=== PATIENT | female | born 1995 | race Caucasian/White ===

== ENCOUNTER 2016-03-09 19:27 | Outpatient (CLI) | payer SELFPAY ==
[2016-03-09 20:32] LABS: Basophils % (A) 0 %; CH 28.1; CHCM 32.8; Eosinophils # (A) 0.1 k/uL (0-0.7); Eosinophils % (A) 1 %; HCT 37.3 % (34.0-46.0); HDW 3.14; HGB 11.9 gm/dL (11.4-16.0); Hypochromasia Slight; Luc # (Auto) 0.14; Luc % (Auto) 1; Lymphocytes # (A) 2.9 k/uL (1.0-4.8); Lymphocytes % (A) 22 %; MCH 27.5 pg (25.0-35.0); MCV 86.1 fL (80.0-100.0); Mean Platelet Volume 7.7; Monocytes # (A) 0.6 k/uL (0-1.0); Monocytes % (A) 4 %; Neutrophils # (A) 9.3 k/uL (1.3-7.7); Neutrophils % (A) 72 %; RBC 4.33 m/uL (3.80-5.40); RDW 13.2 % (11.5-15.5); WBC (Perox) 13.15
--- NOTE | 2016-03-09 21:13 | US ---
EXAMINATION TYPE: US OB >= 14 wk fetus DATE OF EXAM: 03/09/2016 9:01 PM COMPARISON: on PACS CLINICAL HISTORY: abdominal pressure, bleeding, , TECHNIQUE: Transabdominal (TA) GESTATIONAL AGE / DATING Physician Established: (33 weeks/5 days) EDC: 04/22/2016 Dates by Current Scan: (31 weeks/6 days) EDC: 05/05/2016 SURVEY IUP: Single PLACENTA: Posterior PREVIA: No Previa YG: 13.0 cm Normal CERVICAL LENGTH (transabdominal: norm > 3.0cm): 2.9 cm BIOMETRY PRESENTATION: Vertex LIE: Longitudinal BPD: 8.0 cm 32 weeks / 2 days HC: 30.0 cm 33 weeks / 2 days AC: 27.7 cm 31 weeks / 5 days FL: 6.1 cm 31 weeks / 4 days ESTIMATED WEIGHT IN GRAMS: 1861 grams ESTIMATED WEIGHT IN LBS/OZS: 4 lbs. 2 oz. WEIGHT PERCENTAGE BASED ON ESTABLISHED DATES: 6.1% HC/AC: 1.1 Normal FL/AC: 22.0 Normal HEART RATE: 127 bpm RHYTHM: Normal IMPRESSION: Viable IUP measuring 31 weeks 6 days. Cervical length= 2.9 cm
[2016-03-09 21:29] LABS: Hepatitis B Surface Ag Index 0.04
[2016-03-09 21:32] LABS: Amorphous Sediment,Urine Occasional /hpf; Appearance,Urine Turbid (Clear); Bilirubin,Urine Negative (Negative); Glucose,Urine (UA) Negative (Negative); Ketones,Urine Negative (Negative); Leukocyte Esterase,Urine Negative (Negative); Mucus,Urine Rare /hpf; Nitrite,Urine Negative (Negative); Particle Count 17549; Protein,Urine Trace (Negative); Specific Gravity,Urine 1.014 (1.001-1.035); Squamous Epithelial Cell,Urine 1 /hpf (0-4); UA Billing (MACRO vs. MICRO) MICRO; Urobilinogen,Urine <2.0 mg/dL (<2.0)
[2016-03-12 10:12] LABS: HIV-1/HIV-2 Ab Screen NONREAC (NON REAC)
== END 2016-03-09 21:50 | disposition home or self-care (01) ==
LOC: FBPOP 19:27
PROVIDERS: ATTEND Obstetrics & Gynecology
DX: O26.853 Spotting complicating pregnancy, third trimester (principal); O99.333 Smoking (tobacco) complicating pregnancy, third trimester; Z3A.33 33 weeks gestation of pregnancy
CPT/HCPCS: 59025; 76805; 80306; 81001; 85025; 86762; 86780; 86850; 86900; 86901; 87340; 87389; 87491; 87591; 99213

== ENCOUNTER → 2016-04-10 | Outpatient (CLI) | payer OTHER ==
--- NOTE | 2016-04-10 15:02 | US ---
EXAMINATION TYPE: US OB >= 14 wk fetus DATE OF EXAM: 04/10/2016 12:41 PM COMPARISON: None CLINICAL HISTORY: Encounter Normal Z34.80Patient states she has been measuring 4 weeks behi nd EDC. TECHNIQUE: OBTA GESTATIONAL AGE / DATING Physician Established: (38 weeks/2 days) EDC: 04/22/2016 Dates by LMP: (38 weeks/1 days) EDC: 04/23/2016 Dates by First Scan: (38 weeks/ 1 days) EDC: 04/23/2016 Dates by Current Scan: (36 weeks/2 days) EDC: 05/06/2016 SURVEY IUP: Single PLACENTA: Fundal PREVIA: No Previa YG: 13.7 cm CERVICAL LENGTH (transabdominal: norm > 3.0cm): 3.3 cm BIOMETRY PRESENTATION: Vertex LIE: Longitudinal BPD: 8.5 cm 34 weeks / 4 days HC: 32.3 cm 36 weeks / 4 days AC: 32.4 cm 36 weeks / 3 days FL: 7.3 cm 37 weeks / 5 days ESTIMATED WEIGHT IN GRAMS: 2961 grams ESTIMATED WEIGHT IN LBS/OZS: 6 lbs. 8 oz. WEIGHT PERCENTAGE BASED ON ESTABLISHED DATES: 21% HC/AC: 1.0 Normal FL/AC: 22.6 Normal HEART RATE: 164 bpm RHYTHM: Normal TECHNOLOGIST IMPRESSION: Viable 36w2d fetus seen is now measuring 2 weeks under EDC. Placenta appears grade 4. IMPRESSION: 1. Single intrauterine gestation estimated at 36 6 weeks 2 days gestation. 2. Cardiac activity measures 164 bpm. 3. The femur length to head circumference ratio is elevated at 22.70
== END | disposition home or self-care (01) ==
LOC: RADUSWWP 12:24
PROVIDERS: ATTEND Obstetrics & Gynecology
DX: Z34.83 Encounter for supervision of other normal pregnancy, third trimester (principal); Z3A.36 36 weeks gestation of pregnancy
CPT/HCPCS: 76805

== ENCOUNTER 2016-05-18 02:10 | Emergency (ER) | payer OTHER ==
[2016-05-18 02:26] VITALS: RESP 20
--- NOTE | 2016-05-18 03:25 | ED ---
ENT HPI - General Chief complaint: Dental/Oral Stated complaint: dental pain Time Seen by Provider: 05/18/16 02:45 Source: patient, RN notes reviewed Mode of arrival: ambulatory Limitations: no limitations - History of Present Illness Initial comments: Patient is 20-year-old female presents to the emergency room for evaluation of dental pain. Patient states she began having dental pain yesterday afternoon. Patient states the pain has been getting worse since it started. Patient states she has been taking ibuprofen with no relief of symptoms. Patient states that she recently had a tooth extracted about a week ago. Patient states that she has been on amoxicillin for the past week. Patient does have another dentist appointment on 05/28/16. Patient states the pain has woke her from her sleep. Patient states that she has been having issues with this tooth for a long time. Patient denies fevers or chills. Patient states pain radiates up into her right ear. Patient denies nausea or vomiting. Patient denies headache or dizziness. - Related Data Home Medications Medication Instructions Recorded Confirmed Acetaminophen Tab [Tylenol Tab] 325 mg PO Q6H 03/20/16 05/18/16 Amoxicillin 500 mg PO Q6H 05/18/16 05/18/16 Previous Rx's Medication Instructions Recorded HYDROcodone/APAP 5-325MG [[place] 1 tab PO Q6HR PRN #12 tab 05/18/16 5-325] Allergies Allergy/AdvReac Type Severity Reaction Status Date / Time No Known Allergies Allergy Verified 05/18/16 02:26 Review of Systems ROS Statement: Those systems with pertinent positive or pertinent negative responses have been documented in the HPI. ROS Other: All systems not noted in ROS Statement are negative. Past Medical History Past Medical History: No Reported History History of Any Multi-Drug Resistant Organisms: None Reported Past Surgical History: No Surgical Hx Reported Past Psychological History: Anxiety, Bipolar, Depression Smoking Status: Current every day smoker Past Alcohol Use History: None Reported Past Drug Use History: None Reported - Past Family History Mother Family Medical History: Cancer Additional Family Medical History / Comment(s): cervical General Exam - General Exam Comments Initial Comments: Sitting in exam room in no distress. Limitations: no limitations General appearance: alert, in no apparent distress Head exam: Present: atraumatic, normocephalic, normal inspection Eye exam: Present: normal appearance Expanded Teeth exam: Present: dental caries, fractured tooth # (2), dental tenderness # ( 2) Throat exam: normal inspection Neck exam: Present: normal inspection Respiratory exam: Absent: respiratory distress Extremities exam: Present: normal inspection Back exam: Present: normal inspection Neurological exam: Present: alert, oriented X3, CN II-XII intact, normal gait Psychiatric exam: Present: normal affect, normal mood Skin exam: Present: warm, dry, intact, normal color. Absent: rash Course Vital Signs 05/18/16 05/18/16 02:24 03:34 Temperature 98 F 97 F L Pulse Rate 75 102 H Respiratory 20 20 Rate Blood Pressure 131/73 122/67 O2 Sat by Pulse 97 97 Oximetry Medical Decision Making - Medical Decision Making Patient's 20-year-old female presents emergency room for evaluation of worsening dental pain. Patient does have deterioration of tooth #2. Patient is already on amoxicillin. Will place patient on [place] and advised to follow- up with her dentist. Patient states she understands everything that was discussed with her. Return parameters discussed. Case discussed with Dr. Claire. Disposition Clinical Impression: Pain, dental Disposition: HOME SELF-CARE Condition: Good Instructions: Dental Caries (ED), Toothache (ED) Additional Instructions: Please follow up with a dentist. If you do not have a dentist, you may contact [facility]. Phone number is [phone] for existing clients. For new clients you may call [phone]. Another option is you have is the [facility]. Phone number is [phone]. Medications as directed. [place] gargles. Cold fluids can sometimes help with pain as well. Return to the Emergency Room for any worsening or changing symptoms. Use cold compresses to the outside of the face. Prescriptions: HYDROcodone/APAP 5-325MG [[place] 5-325] 1 tab PO Q6HR PRN #12 tab PRN Reason: Pain Referrals: Pita Lowe MD [Primary Care Provider] - 1-2 days Time of Disposition: 03:24
[2016-05-18] MEDS ORDERED: HYDROcodone/APAP 5-325MG 1 EACH TAB PO STA (03:28)
[2016-05-18 03:34] VITALS: BP 122/67; PULSE 102; TEMP 97
== END 2016-05-18 03:34 | disposition home or self-care (01) ==
LOC: EC 02:10
DX: K03.81 Cracked tooth (principal); K02.9 Dental caries, unspecified; F17.200 Nicotine dependence, unspecified, uncomplicated; Z79.891 Long term (current) use of opiate analgesic; Z98.890 Other specified postprocedural states
CPT/HCPCS: 99282

== ENCOUNTER 2016-05-26 14:40 | Emergency (ER) | payer OTHER ==
[2016-05-26 14:53] VITALS: BP 124/66; PULSE 75; RESP 18; TEMP 97.8
[2016-05-26] MEDS ORDERED: TOPICAL SKIN ADHESIVE 1 EACH AMP TOPICAL ONE (14:57)
[2016-05-26] MEDS ORDERED: LIDOCAINE/EPINEPHR/TETRACAINE 5 ML BOTTLE TOPICAL ONE (14:57)
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
== END 2016-05-26 15:55 | disposition home or self-care (01) ==
LOC: EC 14:40
DX: S01.81XA Laceration without foreign body of other part of head, initial encounter (principal); F17.200 Nicotine dependence, unspecified, uncomplicated; W22.8XXA Striking against or struck by other objects, initial encounter
CPT/HCPCS: 12011; 99282

== ENCOUNTER 2017-01-06 11:37 | Emergency (ER) | payer OTHER ==
[2017-01-06 11:45] VITALS: PULSE 90; TEMP 98.2
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
[2017-01-06 13:24] VITALS: BP 112/70; RESP 18
== END 2017-01-06 13:24 | disposition home or self-care (01) ==
LOC: EC 11:37
DX: S00.83XA Contusion of other part of head, initial encounter (principal); F17.200 Nicotine dependence, unspecified, uncomplicated; Y04.2XXA Assault by strike against or bumped into by another person, initial encounter; Y92.009 Unspecified place in unspecified non-institutional (private) residence as the place of occurrence of the external cause
CPT/HCPCS: 70110; 99283

== ENCOUNTER 2017-01-11 19:24 | Emergency (ER) | payer OTHER ==
[2017-01-11 19:29] VITALS: BP 113/61; PULSE 102; RESP 18; TEMP 99
--- NOTE | 2017-01-11 19:46 | ED ---
ENT HPI - General Chief complaint: Dental/Oral Stated complaint: Dental Pain Time Seen by Provider: 01/11/17 19:29 Source: patient, RN notes reviewed Mode of arrival: ambulatory Limitations: no limitations - History of Present Illness Initial comments: This is a 21-year-old female who presents to the emergency department with chief complaint of dental pain. Patient states that she's been experiencing pain in her right upper molar for the past 4 days. She states she has tried using Tylenol and Motrin with minimal relief. She states she believes there is an abscess as she has had a bad taste in her mouth. She states she has been unable to find a dentist that takes her insurance and that she can't get an appointment with her PCP for 2 weeks. Denies fever, chills, chest pain, shortness of breath, abdominal pain, nausea or vomiting, constipation or diarrhea, dysuria or hematuria, numbness or tingling, headache or vision changes. - Related Data Previous Rx's Medication Instructions Recorded Ibuprofen [Motrin] 600 mg PO Q8HR PRN #30 tab 12/30/16 Acetaminophen-Codeine 300-30mg 1 tab PO Q4H PRN #12 tablet 01/11/17 [Tylenol #3] Penicillin V Potassium [Pen Vee K] 500 mg PO QID 10 Days #40 tab 01/11/17 Allergies Allergy/AdvReac Type Severity Reaction Status Date / Time No Known Allergies Allergy Verified 01/11/17 19:28 Review of Systems ROS Statement: Those systems with pertinent positive or pertinent negative responses have been documented in the HPI. ROS Other: All systems not noted in ROS Statement are negative. Past Medical History Past Medical History: No Reported History History of Any Multi-Drug Resistant Organisms: None Reported Past Surgical History: No Surgical Hx Reported Past Psychological History: Anxiety, Bipolar, Depression Smoking Status: Current every day smoker Past Alcohol Use History: Occasional Past Drug Use History: None Reported - Past Family History Mother Family Medical History: Cancer Additional Family Medical History / Comment(s): cervical General Exam - General Exam Comments Initial Comments: General: Awake and alert, well-developed; in no apparent distress. HEENT: Head atraumatic, normocephalic. Pupils are equal, round and reactive to light. Extraocular movements intact. Oropharynx moist without erythema or exudate. Poor dentition with multiple caries. Tooth #3 is fractured. There is no area of fluctuance or mass noted. No tenderness to palpation of gumline. Neck: Supple. Normal ROM. Cardiovascular: Regular rate and rhythm. No murmurs, rubs or gallops. Chest symmetrical. Respiratory: Lungs clear to auscultation bilaterally. No wheezes, rales or rhonchi. Normal respiratory effort with no use of accessory muscles. Skin: [place], warm and dry without rashes or lesions. Neurological: Alert and oriented x3. CN II-XII grossly intact. Speech is fluent and answers are appropriate. No focal neuro deficits. Psychiatric: Normal mood and affect. No overt signs of depression or anxiety noted. Limitations: no limitations Course Vital Signs 01/11/17 19:26 Temperature 99 F Pulse Rate 102 H Respiratory 18 Rate Blood Pressure 113/61 O2 Sat by Pulse 97 Oximetry Medical Decision Making - Medical Decision Making This is a 21-year-old female who presents with complaint of dental pain. Tooth #3 is fractured. No evidence of abscess, however patient believes she has one because she has had a bad taste in her mouth. Patient will be discharged home with antibiotics and pain medication. She was strongly advised to follow up with a dentist within 1-2 days. Patient is in no acute distress at this time. Patient is in agreement to the plan and voiced understanding. All questions were answered. Disposition Clinical Impression: Fracture of tooth, Dental caries Disposition: HOME SELF-CARE Condition: Good Instructions: Dental Caries (ED), Toothache (ED) Additional Instructions: Please take medications as prescribed. Please follow up with a dentist within 1 -2 days. Please follow up with primary care provider within 1-2 days. Return to emergency department if symptoms should worsen or any concerns arise. Prescriptions: Acetaminophen-Codeine 300-30mg [Tylenol #3] 1 tab PO Q4H PRN #12 tablet PRN Reason: Pain Penicillin V Potassium [Pen Vee K] 500 mg PO QID 10 Days #40 tab Referrals: Pita Lowe MD [Primary Care Provider] - 1-2 days Time of Disposition: 19:46
== END 2017-01-11 19:51 | disposition home or self-care (01) ==
LOC: EC 19:24
DX: S02.5XXA Fracture of tooth (traumatic), initial encounter for closed fracture (principal); K02.9 Dental caries, unspecified; F17.200 Nicotine dependence, unspecified, uncomplicated
CPT/HCPCS: 99282

== ENCOUNTER 2017-04-23 18:31 | Emergency (ER) | payer OTHER ==
[2017-04-23 18:42] VITALS: RESP 18
[2017-04-23] MEDS ORDERED: IBUPROFEN 600 MG STARTER PACK 4 TAB BTL PO STA (20:15)
--- NOTE | 2017-04-23 20:22 | ED ---
General Adult HPI - General Chief complaint: Chest Pain Stated complaint: chest pain, rt arm pain Time Seen by Provider: 04/23/17 19:40 Source: patient, RN notes reviewed Mode of arrival: ambulatory Limitations: no limitations - History of Present Illness Initial comments: Chief complaint and history of present illness is a 21-year-old female with a complaint of anterior chest wall pain. She reports the discomfort started during an argument with her significant other. It is reproducible by deep breathing twisting turning and palpation. She denies any direct injury. No sensation of nausea or sweats - Related Data Home Medications Medication Instructions Recorded Confirmed No Known Home Medications [No 04/23/17 04/23/17 Known Home Medications] Allergies Allergy/AdvReac Type Severity Reaction Status Date / Time No Known Allergies Allergy Verified 04/23/17 19:50 Review of Systems ROS Statement: Those systems with pertinent positive or pertinent negative responses have been documented in the HPI. review of systems no headache or visual acuity changes chest wall pain is reproducible. She might also has some problems with her ulnar nerve on her right hand occasional numbness to her right pinky. No nausea no vomiting no diarrhea. Otherwise no other neuro deficits. All systems were reviewed. Past medical problems none. Surgeries none. Family history mother had cervical cancer.Patient denies any ALLERGIES. She does smoke she was strongly encouraged to stop. Alcohol use none. ROS Other: All systems not noted in ROS Statement are negative. Past Medical History Past Medical History: No Reported History History of Any Multi-Drug Resistant Organisms: None Reported Past Surgical History: No Surgical Hx Reported Past Psychological History: ADD/ADHD, Anxiety, Bipolar, Depression Smoking Status: Current every day smoker Past Alcohol Use History: Occasional Past Drug Use History: None Reported - Past Family History Mother Family Medical History: Cancer Additional Family Medical History / Comment(s): cervical General Exam - General Exam Comments Initial Comments: General: The patient is awake and alert, presents with chest wall discomfort associated with anxiety attack and an argument with her boyfriend. Vital signs temp 98.8 pulse 95 respiratory rate 18 pulse ox on percent room air blood pressure 110/68 Eye: Pupils are equal, round and reactive to light, extra-ocular movements are intact ; there is normal conjunctiva bilaterally. No signs of icterus. Ears, nose, mouth and throat: There are moist mucous membranes and no oral lesions. Neck: The neck is supple, there is no tenderness, no anterior cervical lymphadenopathy , thyroid not enlarged. Cardiovascular: There is a regular rate and rhythm. No murmur, rub or gallop is appreciated.the chest discomfort reproducible with taking a deep breath pushing on her own chest. Twisting or turning. no injury or bruising noted the surface of the chest. Respiratory: Lungs are clear to auscultation, respirations are non-labored, breath sounds are equal. No wheezes, stridor, rales, or rhonchi. Gastrointestinal: no nausea no vomiting ,abdomen soft Back: There is no tenderness to palpation in the midline. There is no obvious deformity. No rashes noted. Musculoskeletal: Normal ROM, no tenderness, There is no pedal edema. There is no calf tenderness or swelling. Sensation intact. Pulses equal bilaterally 2+. Neurological: no neuro deficits. Skin: Skin is warm and dry and no rashes or lesions are noted. Psychiatric: Cooperative, appropriate mood & affect, patient admits that she had an anxiety type episode during an argument with her significant other. The chest pain became pronounced during the argument subsided afterwards. Right now what chest pain she does as is reproducible with twisting turning palpating on her chest wall. Limitations: no limitations Course Vital Signs 04/23/17 04/23/17 18:40 20:35 Temperature 98.8 F Pulse Rate 95 Pulse Rate [ 85 Left Sitting Pulse Oximetery ] Pulse Rate [ 102 H Left Standing Pulse Oximetery ] Pulse Rate [ 86 Left Supine Pulse Oximetery ] Respiratory 18 Rate Blood Pressure 110/68 Blood Pressure 110/74 [Right Arm Sitting] Blood Pressure 111/77 [Right Arm Standing] Blood Pressure 108/62 [Right Arm Supine] O2 Sat by Pulse 100 Oximetry EKG Findings - EKG Comments: EKG Findings:: EKG was done and reviewed at 1938 showing normal sinus rhythm no acute ST elevation no ectopy no ischemic changes. Rate 83 AR interval is 144 QRS [address] Graves Medical Decision Making - Medical Decision Making medical decision making; this is a 21-year-old female who is coming emergency room because of chest wall discomfort associated with an anxiety provoked provoking situation with his significant other. Patient also reports that she was probably hyperventilating and felt dizzy. Orthostatics performed in emergency room with a normal limits. EKG was normal. Her chest pain was reproducible with twisting turning and palpation. Disposition Clinical Impression: Costochondritis, acute, Anxiety Disposition: HOME SELF-CARE Condition: Stable Instructions: Costochondritis (ED), Anxiety (ED) Referrals: Pita Lowe MD [Primary Care Provider] - 1-2 days Time of Disposition: 21:00
[2017-04-23 21:30] VITALS: BP 126/77; PULSE 59; TEMP 98.6
== END 2017-04-23 21:30 | disposition home or self-care (01) ==
LOC: EC 18:31
DX: M94.0 Chondrocostal junction syndrome [Tietze] (principal); F41.9 Anxiety disorder, unspecified; F17.200 Nicotine dependence, unspecified, uncomplicated
CPT/HCPCS: 93005; 99284

== ENCOUNTER 2017-06-02 17:19 | Emergency (ER) | payer OTHER ==
[2017-06-02 17:29] VITALS: RESP 18; TEMP 98.6
[2017-06-02 18:39] LABS: Basophils % (A) 0 %; Eosinophils # (A) 0.1 k/uL (0-0.7); Eosinophils % (A) 2 %; HCT 37.8 % (34.0-46.0); HGB 12.2 gm/dL (11.4-16.0); Lymphocytes # (A) 3.1 k/uL (1.0-4.8); Lymphocytes % (A) 40 %; MCH 27.1 pg (25.0-35.0); MCHC 32.4 g/dL (31.0-37.0); MCV 83.6 fL (80.0-100.0); Mean Platelet Volume 6.9; Monocytes # (A) 0.3 k/uL (0-1.0); Monocytes % (A) 4 %; Neutrophils # (A) 4.1 k/uL (1.3-7.7); Neutrophils % (A) 53 %; Platelet Count 351 k/uL (150-450); RBC 4.52 m/uL (3.80-5.40); RDW 15.1 % (11.5-15.5); WBC 7.7 k/uL (3.8-10.6)
[2017-06-02 18:44] LABS: Anion Gap 8 mmol/L; Blood Urea Nitrogen 12 mg/dL (7-17); Calcium 9.4 mg/dL (8.4-10.2); Carbon Dioxide 30 mmol/L (22-30); Chloride 103 mmol/L (98-107); Glucose 73 mg/dL (74-99); Potassium 3.7 mmol/L (3.5-5.1); Sodium 141 mmol/L (137-145)
--- NOTE | 2017-06-02 19:57 | ED ---
General Adult HPI - General Chief complaint: Skin/Abscess/Foreign Body Stated complaint: Bump on head, causing pain Time Seen by Provider: 06/02/17 17:40 Source: patient Mode of arrival: ambulatory Limitations: no limitations - History of Present Illness Initial comments: 21-year-old female presenting for evaluation of pain to a nodule on her scalp. She states that she's had this nodule for her entire life and that it is never really given her difficulty until now. Over the last week she has felt pain to the nodule on his caused her stress which is chronic, or hair or perform any other activities. 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 Otherwise she states that it does not go ahead, there is not been any further enlarging of the nausea, and there is no overlying erythema or warmth. She's never seen a specialist concerning this and states that she had previous he seen her primary care physician but hasn't seen him about this and some time. She denies any other symptoms. - Related Data Home Medications Medication Instructions Recorded Confirmed Ibuprofen [Advil] 400 mg PO Q8HR PRN 06/02/17 06/02/17 Previous Rx's Medication Instructions Recorded traMADol HCL [Ultram] 100 mg PO Q6HR PRN #14 tab 06/02/17 Allergies Allergy/AdvReac Type Severity Reaction Status Date / Time acetaminophen Allergy Rash/Hives Verified 06/02/17 18:01 [From Tylenol-Codeine #3] codeine Allergy Rash/Hives Verified 06/02/17 18:01 [From Tylenol-Codeine #3] Review of Systems ROS Statement: Those systems with pertinent positive or pertinent negative responses have been documented in the HPI. ROS Other: All systems not noted in ROS Statement are negative. Constitutional: Denies: fever, chills Eyes: Denies: eye pain, eye discharge, vision change ENT: Denies: ear pain, throat pain Respiratory: Denies: cough, dyspnea Cardiovascular: Denies: chest pain, dyspnea on exertion, syncope Endocrine: Denies: fatigue, polydipsia, polyuria Gastrointestinal: Denies: abdominal pain, nausea, vomiting Genitourinary: Denies: urgency, dysuria Musculoskeletal: Denies: back pain, arthralgia, myalgia Skin: Reports: other (Lump to her right parietal scalp that is painful). Denies : rash Neurological: Denies: headache, weakness Psychiatric: Denies: anxiety, depression Hematological/Lymphatic: Denies: easy bleeding, easy bruising Past Medical History Past Medical History: No Reported History History of Any Multi-Drug Resistant Organisms: None Reported Past Surgical History: No Surgical Hx Reported Past Psychological History: ADD/ADHD, Anxiety, Bipolar, Depression Smoking Status: Current every day smoker Past Alcohol Use History: Occasional Past Drug Use History: None Reported - Past Family History Mother Family Medical History: Cancer Additional Family Medical History / Comment(s): cervical General Exam Limitations: no limitations General appearance: alert, in no apparent distress Head exam: Present: atraumatic, normocephalic, other (Small raised nodule to the right parietal scalp that is non-erythematous, not warm to palpation, and without any break in the skin or pustular head. It is non-fluctuant and firm to the touch.) Eye exam: Present: normal appearance, PERRL, EOMI. Absent: scleral icterus, conjunctival injection, periorbital swelling ENT exam: Present: normal exam, mucous membranes moist Neck exam: Present: normal inspection. Absent: tenderness, meningismus, lymphadenopathy Respiratory exam: Present: normal lung sounds bilaterally. Absent: respiratory distress, wheezes, rales, rhonchi, stridor Cardiovascular Exam: Present: regular rate, normal rhythm, normal heart sounds. Absent: systolic murmur, diastolic murmur, rubs, gallop, clicks GI/Abdominal exam: Present: soft, normal bowel sounds. Absent: distended, tenderness, guarding, rebound, rigid Rectal exam: Present: deferred Extremities exam: Present: normal inspection, full ROM, normal capillary refill. Absent: tenderness, pedal edema, joint swelling, calf tenderness Back exam: Present: normal inspection Neurological exam: Present: alert, oriented X3, CN II-XII intact Psychiatric exam: Present: normal affect, normal mood Skin exam: Present: warm, dry, intact, normal color. Absent: rash Course Vital Signs 06/02/17 17:27 Temperature 98.6 F Pulse Rate 88 Respiratory 18 Rate Blood Pressure 142/75 O2 Sat by Pulse 98 Oximetry EKG Findings - EKG Comments: EKG Findings:: Number sinus rhythm with a ventricular rate of 79, MARGARITA 148, QRS 82, QT/QTC 378/433. Medical Decision Making - Medical Decision Making 21-year-old male presented for evaluation of painful lump to her right parietal scalp that is been present since however over the last weeks is been causing her pain. On physical examination there are no other abnormalities to the nodule which is non-mobile, firm, nonfluctuant without overlying erythema or surrounding induration. Labs revealed no significant abnormalities and EKG was normal sinus rhythm. The patient was reevaluated and had no change in her exam. She was advised to follow-up with her primary care physician and a boot and shoe repairman. She is further given return instructions. The patient acknowledged an understanding of all information provided and agreed with this plan of care. - Lab Data Result diagrams: 06/02/17 18:25 06/02/17 18:25 Lab Results 06/02/17 06/02/17 06/02/17 Range/Units 18:25 18:25 18:25 WBC 7.7 (3.8-10.6) k/uL RBC 4.52 (3.80-5.40) m/uL Hgb 12.2 (11.4-16.0) gm/dL Hct 37.8 (34.0-46.0) % MCV 83.6 (80.0-100.0) fL MCH 27.1 (25.0-35.0) pg MCHC 32.4 (31.0-37.0) g/dL RDW 15.1 (11.5-15.5) % Plt Count 351 (150-450) k/uL Neutrophils % 53 % Lymphocytes % 40 % Monocytes % 4 % Eosinophils % 2 % Basophils % 0 % Neutrophils # 4.1 (1.3-7.7) k/uL Lymphocytes # 3.1 (1.0-4.8) k/uL Monocytes # 0.3 (0-1.0) k/uL Eosinophils # 0.1 (0-0.7) k/uL Basophils # 0.0 (0-0.2) k/uL Sodium 141 (137-145) mmol/L Potassium 3.7 (3.5-5.1) mmol/L Chloride 103 (98-107) mmol/L Carbon Dioxide 30 (22-30) mmol/L Anion Gap 8 mmol/L BUN 12 (7-17) mg/dL Creatinine 0.66 (0.52-1.04) mg/dL Est GFR (CKD-EPI)AfAm >90 (>60 ml/min/1.73 sqM) Est GFR (CKD-EPI)NonAf >90 (>60 ml/min/1.73 sqM) Glucose 73 L (74-99) mg/dL Calcium 9.4 (8.4-10.2) mg/dL Urine HCG, Qual Not Detected (Not Detectd) Disposition Clinical Impression: Lump of scalp Disposition: HOME SELF-CARE Condition: Stable Instructions: Tramadol (By mouth) Additional Instructions: Please use medication as discussed. Please follow up with family doctor if symptoms have not improved over the next two days. Please return to the emergency room if your symptoms increase or worsen or for any other concerns. Prescriptions: traMADol HCL [Ultram] 100 mg PO Q6HR PRN #14 tab PRN Reason: Pain Referrals: Pita Lowe MD [Primary Care Provider] - 1-2 days Pratik Garrison MD [STAFF PHYSICIAN] - 1-2 days Michael Garrison MD [STAFF PHYSICIAN] - 1-2 days Time of Disposition: 19:57
[2017-06-02 20:29] VITALS: BP 110/68; PULSE 71
== END 2017-06-02 20:33 | disposition home or self-care (01) ==
LOC: EC 17:19
DX: R22.0 Localized swelling, mass and lump, head (principal); F17.200 Nicotine dependence, unspecified, uncomplicated; Z88.5 Allergy status to narcotic agent; Z88.8 Allergy status to other drugs, medicaments and biological substances
CPT/HCPCS: 36415; 80048; 81025; 85025; 93005; 99283

== ENCOUNTER 2018-02-01 08:38 | Emergency (ER) | payer OTHER ==
[2018-02-01 08:43] VITALS: RESP 18
--- NOTE | 2018-02-01 09:43 | XR ---
EXAMINATION TYPE: XR knee complete RT DATE OF EXAM: 02/01/2018 COMPARISON: NONE HISTORY: Pain TECHNIQUE: Three views are submitted. FINDINGS: Joint spaces are preserved. Osseous structures are intact. No acute fracture seen. IMPRESSION: 1. No acute fracture or dislocation.
[2018-02-01] MEDS ORDERED: traMADol 50 MG STARTER PACK 3 TAB BTL PO STA (09:48)
--- NOTE | 2018-02-01 09:48 | ED ---
General Adult HPI - General Chief complaint: Dental/Oral Stated complaint: dental & knee pain Time Seen by Provider: 02/01/18 09:11 Source: patient, RN notes reviewed Mode of arrival: ambulatory Limitations: no limitations - History of Present Illness Initial comments: This a 22-year-old female presents emergency Department chief complaint of right -sided dental pain, right knee pain. Patient states that she's had a broken tooth for a while but states that has become painful last couple days. No facial swelling no fever no chills. Patient states that she also bumped her knee on her work line. Patient states that she got she is motivated has become more swollen and painful. She has not taken anything for pain. Denies any weakness. Patient had no prior surgery. - Related Data Home Medications Medication Instructions Recorded Confirmed Ibuprofen [Advil] 800 mg PO Q8HR PRN 06/02/17 02/01/18 Previous Rx's Medication Instructions Recorded Ibuprofen [Motrin] 600 mg PO Q8HR PRN #30 tab 02/01/18 Penicillin V Potassium [Pen Vee K] 500 mg PO QID #40 tablet 02/01/18 Allergies Allergy/AdvReac Type Severity Reaction Status Date / Time acetaminophen Allergy Rash/Hives Verified 02/01/18 09:28 [From Tylenol-Codeine #3] codeine Allergy Rash/Hives Verified 02/01/18 09:28 [From Tylenol-Codeine #3] Review of Systems ROS Statement: Those systems with pertinent positive or pertinent negative responses have been documented in the HPI. ROS Other: All systems not noted in ROS Statement are negative. Past Medical History Past Medical History: No Reported History History of Any Multi-Drug Resistant Organisms: None Reported Past Surgical History: No Surgical Hx Reported Past Psychological History: ADD/ADHD, Anxiety, Bipolar, Depression Smoking Status: Current every day smoker Past Alcohol Use History: Occasional Past Drug Use History: None Reported - Past Family History Mother Family Medical History: Cancer Additional Family Medical History / Comment(s): cervical General Exam Limitations: no limitations General appearance: alert, in no apparent distress Head exam: Present: atraumatic, normocephalic, normal inspection Eye exam: Present: normal appearance, PERRL, EOMI. Absent: scleral icterus, conjunctival injection, periorbital swelling ENT exam: Present: mucous membranes moist, TM's normal bilaterally, normal external ear exam. Absent: normal oropharynx (Poor dentition, dental fracture right upper, dental decay. Patient has no evidence of abscess.) Neck exam: Present: normal inspection, full ROM. Absent: tenderness, meningismus, lymphadenopathy Respiratory exam: Present: normal lung sounds bilaterally. Absent: respiratory distress, wheezes, rales, rhonchi, stridor Cardiovascular Exam: Present: regular rate, normal rhythm, normal heart sounds. Absent: systolic murmur, diastolic murmur, rubs, gallop, clicks Extremities exam: Present: other (Right knee there is mild swelling noted, no ecchymosis no erythema neurovascular intact no laxity negative anterior posterior drawer) Skin exam: Present: warm, dry, intact, normal color. Absent: rash Course Vital Signs 02/01/18 08:40 Temperature 98.3 F Pulse Rate 102 H Respiratory 18 Rate Blood Pressure 107/71 O2 Sat by Pulse 100 Oximetry Medical Decision Making - Medical Decision Making 22-year-old female presented to pain, right knee pain. Patient has right knee contusion. Patient also has right upper dental infection, dental fracture. Patient was started on antibiotics there is no abscess no trismus. Patient will follow-up with dentist return for any worsening symptoms Disposition Clinical Impression: Contusion of right knee, Dental caries, Dental infection Disposition: HOME SELF-CARE Condition: Stable Instructions: Toothache (ED) Additional Instructions: Please return to the Emergency Department if symptoms worsen or any other concerns. Prescriptions: Ibuprofen [Motrin] 600 mg PO Q8HR PRN #30 tab PRN Reason: Pain Penicillin V Potassium [Pen Vee K] 500 mg PO QID #40 tablet Is patient prescribed a controlled substance at d/c from ED?: No Referrals: Pita Lowe MD [Primary Care Provider] - 1-2 days Time of Disposition: 09:47
[2018-02-01 09:56] VITALS: BP 138/59; PULSE 92; TEMP 99
== END 2018-02-01 09:55 | disposition home or self-care (01) ==
LOC: EC 08:38
DX: S80.01XA Contusion of right knee, initial encounter (principal); K02.9 Dental caries, unspecified; K04.7 Periapical abscess without sinus; S02.5XXA Fracture of tooth (traumatic), initial encounter for closed fracture; F17.200 Nicotine dependence, unspecified, uncomplicated; Z88.6 Allergy status to analgesic agent; Z88.5 Allergy status to narcotic agent; W22.8XXA Striking against or struck by other objects, initial encounter
CPT/HCPCS: 99283

== ENCOUNTER 2018-05-25 14:23 | Emergency (ER) | payer OTHER ==
[2018-05-25] MEDS ORDERED: SODIUM CHLORIDE 0.9% 500 ML 500 ML IV ONE (15:10)
[2018-05-25 15:52] LABS: Basophils % (A) 0 %; Eosinophils # (A) 0.2 k/uL (0-0.7); Eosinophils % (A) 2 %; HCT 46.2 % (34.0-46.0); HGB 14.8 gm/dL (11.4-16.0); Lymphocytes # (A) 1.3 k/uL (1.0-4.8); Lymphocytes % (A) 10 %; MCHC 32.1 g/dL (31.0-37.0); MCV 87.2 fL (80.0-100.0); Mean Platelet Volume 6.6; Monocytes # (A) 0.4 k/uL (0-1.0); Monocytes % (A) 3 %; Neutrophils # (A) 10.9 k/uL (1.3-7.7); Neutrophils % (A) 85 %; Platelet Count 351 k/uL (150-450); RBC 5.29 m/uL (3.80-5.40); RDW 14.4 % (11.5-15.5); WBC 12.8 k/uL (3.8-10.6)
[2018-05-25 16:00] LABS: ALT 31 U/L (9-52); AST 27 U/L (14-36); Albumin 4.8 g/dL (3.5-5.0); Alkaline Phosphatase 63 U/L (38-126); Anion Gap 11 mmol/L; Blood Urea Nitrogen 9 mg/dL (7-17); Calcium 9.9 mg/dL (8.4-10.2); Carbon Dioxide 25 mmol/L (22-30); Chloride 101 mmol/L (98-107); Glucose 83 mg/dL (74-99); Potassium 3.9 mmol/L (3.5-5.1); Sodium 137 mmol/L (137-145); Total Bilirubin 0.5 mg/dL (0.2-1.3)
--- NOTE | 2018-05-25 16:09 | ED ---
Female Urogenital HPI - General Chief complaint: Vaginal Bleeding Stated complaint: Early bleeding Time Seen by Provider: 05/25/18 15:01 Source: patient Mode of arrival: ambulatory Limitations: no limitations - History of Present Illness Initial comments: 22-year-old female no past medical history presenting today for chief complaint of vaginal bleeding and . Patient states she has had a positive home test. She believes she is not a weeks . Patient states her last also. With sometime in March. Patient states she does not have an POWER CLEANER OPERATOR at this time. Patient states that yesterday she was diagnosed the flu, she was given Tamiflu as well Tylenol. She states she woke this morning with spotting she states it began as light pink. Today it has progressed into darker red with clots. Patient states she has mild lower abdominal cramping bilaterally she states it feels as though it is menstruation. Patient denies any severe abdominal pain. Patient denies a vaginal discharge dysuria urgency or frequency. Patient denies any upper abdominal pain or trauma to the abdomen. She states she has had a fever secondary to influenza however symptoms have been progressively getting better. Remaining review of systems negative upon arrival patient appears well, patient denies any recent shortness of breath, chest pain, back pain, nausea or vomiting, numbness or tingling, constipation or diarrhea, headaches or visual changes, or any other complaints. - Related Data Home Medications Medication Instructions Recorded Confirmed Ywn-Qwae-Ssxtc Acid 1 cap PO DAILY 05/25/18 05/25/18 [-U Capsule (formulary)] Allergies Allergy/AdvReac Type Severity Reaction Status Date / Time No Known Allergies Allergy Verified 05/25/18 16:50 Review of Systems ROS Statement: Those systems with pertinent positive or pertinent negative responses have been documented in the HPI. ROS Other: All systems not noted in ROS Statement are negative. Past Medical History Past Medical History: No Reported History History of Any Multi-Drug Resistant Organisms: None Reported Past Surgical History: No Surgical Hx Reported Past Psychological History: ADD/ADHD, Anxiety, Bipolar, Depression Smoking Status: Current every day smoker Past Alcohol Use History: Occasional Past Drug Use History: None Reported - Past Family History Mother Family Medical History: Cancer Additional Family Medical History / Comment(s): cervical General Exam - General Exam Comments Initial Comments: General: The patient is awake and alert, in no distress, and does not appear acutely ill. Eye: +3 mm pupils are equal, round and reactive to light, extra-ocular movements are intact. No nystagmus. There is normal conjunctiva bilaterally. No signs of icterus. Ears, nose, mouth and throat: There are moist mucous membranes and no oral lesions. Neck: The neck is supple, there is no tenderness or JVD. Cardiovascular: There is a regular rate and rhythm. No murmur, rub or gallop is appreciated. Respiratory: Lungs are clear to auscultation, respirations are non-labored, breath sounds are equal. No wheezes, stridor, rales, or rhonchi. Gastrointestinal: No noted diaphoresis, jaundice, pallor, protecting postures or squirming. Symmetrical pigmentation of abdomen without signs of inflammation. Umbilicus mildline, inverted without swelling. No dilated veins. No noted abdominal distention. No visible masses. No peristalsis, aortic pulsations, or ventral hernia. Bowel sounds audible in all 4 quadrants, unremarkable. Mild tenderness to palpation of the pelvic region b/l. Liver edge, not palpable. Spleen edge, right and left kidney not palpable. Superior bladder margin non-tender. Special Testing: Negative murphys, Rovsing, McBurney, [place], cutaneous hyperesthesia. Iliopsoas and obturator tests negative bilaterally. Negative Heel Jar test/roberta sign. No CVA tenderness. Digital rectal exam deferred Negative monetro turners or cullens sign Pelvic exam revealed open eyes. Small amount of vaginal bleeding. [place] well rugated mucosa. Small amount of vaginal discharge. No cervical motion or adnexal tenderness. Small amount of uterine tenderness. No external lesions Musculoskeletal: Normal ROM, no tenderness. Strength 5/5. Sensation intact. Pulses equal bilaterally 2+. Neurological: A&O x 3. CN II-XII intact, There are no obvious motor or sensory deficits. Coordination appears grossly intact. Speech is normal. Skin: Skin is warm and dry and no rashes or lesions are noted. Psychiatric: Cooperative, appropriate mood & affect, normal judgment. Limitations: no limitations Course Vital Signs 05/25/18 05/25/18 05/25/18 14:32 15:34 17:43 Temperature 98.5 F 98.3 F Pulse Rate 117 H 107 H 105 H Respiratory 16 20 18 Rate Blood Pressure 103/65 132/56 110/73 O2 Sat by Pulse 100 99 99 Oximetry Medical Decision Making - Medical Decision Making 22-year-old presenting for vaginal bleeding and . Ultrasound revealed demise at size of 7 weeks 1 day. Patient has open eyes with vaginal bleeding, active studies . Patient B+. No Rhogam indicated at this time. The globe and stable. Patient is not exposed to a large amount of vaginal bleeding at this time. With vaginal cramping. No severe out of proportion pain at this time. Abdominal exam benign. At this time feel patient is stable for discharge with outpatient OBGYN f/u. She is agreeable with plan and discharged this time. I discussed all findings. Return parameters were discussed at length the patient who verbalizes understanding. I discussed the case with Dr. Wolf who is agreeable with plan as well as patient discharge. V oicemail was left on answering service of Dr. Early for f/u to be scheduled. - Lab Data Result diagrams: 05/25/18 15:37 05/25/18 15:37 Lab Results 05/25/18 05/25/18 05/25/18 Range/Units 15:34 15:37 15:37 WBC 12.8 H (3.8-10.6) k/uL RBC 5.29 (3.80-5.40) m/uL Hgb 14.8 (11.4-16.0) gm/dL Hct 46.2 H (34.0-46.0) % MCV 87.2 (80.0-100.0) fL MCH 28.0 (25.0-35.0) pg MCHC 32.1 (31.0-37.0) g/dL RDW 14.4 (11.5-15.5) % Plt Count 351 (150-450) k/uL Neutrophils % 85 % Lymphocytes % 10 % Monocytes % 3 % Eosinophils % 2 % Basophils % 0 % Neutrophils # 10.9 H (1.3-7.7) k/uL Lymphocytes # 1.3 (1.0-4.8) k/uL Monocytes # 0.4 (0-1.0) k/uL Eosinophils # 0.2 (0-0.7) k/uL Basophils # 0.0 (0-0.2) k/uL Sodium 137 (137-145) mmol/L Potassium 3.9 (3.5-5.1) mmol/L Chloride 101 (98-107) mmol/L Carbon Dioxide 25 (22-30) mmol/L Anion Gap 11 mmol/L BUN 9 (7-17) mg/dL Creatinine 0.59 (0.52-1.04) mg/dL Est GFR (CKD-EPI)AfAm >90 (>60 ml/min/1.73 sqM) Est GFR (CKD-EPI)NonAf >90 (>60 ml/min/1.73 sqM) Glucose 83 (74-99) mg/dL Calcium 9.9 (8.4-10.2) mg/dL Total Bilirubin 0.5 (0.2-1.3) mg/dL AST 27 (14-36) U/L ALT 31 (9-52) U/L Alkaline Phosphatase 63 (38-126) U/L Total Protein 8.0 (6.3-8.2) g/dL Albumin 4.8 (3.5-5.0) g/dL HCG, Quant 55988.0 mIU/mL Blood Type B Positive Blood Type Recheck ABR ONLY Disposition Clinical Impression: demise, Spontaneous miscarriage Disposition: HOME SELF-CARE Condition: Good Instructions (If sedation given, give patient instructions): Miscarriage (ED) Additional Instructions: Please use medication as discussed. Please follow-up with POWER CLEANER OPERATOR in the next week. Please return to emergency room if the symptoms increase or worsen or for any other concerns. Is patient prescribed a controlled substance at d/c from ED?: No Referrals: None,Stated [Primary Care Provider] - 1-2 days Corbin Early MD [STAFF PHYSICIAN] - 1-2 days Time of Disposition: 16:29
--- NOTE | 2018-05-25 17:09 | US ---
EXAMINATION TYPE: Transabdominal DATE OF EXAM: 05/25/2018 4:35 PM COMPARISON: NONE CLINICAL HISTORY: pain. EXAM PERFORMED: Transvaginal (TV) and Transabdominal (TA) EXAM MEASUREMENTS: GESTATIONAL AGE / DATING Physician Established: Not yet established Dates by LMP: unknown Dates by First Scan: No previous this is first scan Dates by Current Scan for: (7 weeks/ 0 days) EDC: demise MATERNAL ANATOMY Uterus: 9.3 x 6.4 x 6.7cm Right Ovary: 1.9 x 1.7 x 1.7cm Left Ovary: 3.2 x 1.7 x 1.7cm Post CDS / Adnexa: wnl Presence of free fluid: no Possible corpus luteal cyst measuring 1.9 x 1.2 x 1.1 Presence of subchorionic bleed: no GESTATION / SURVEY CRL: 1.3cm (7 weeks/0 days) MSD: 2.4 cm (7 weeks/0 days) Yolk Sac (normal less than 6mm): not visualized Heart Rate: no heart tones Rhythm: Normal IUP: Demise Date of LMP: unknown, some time in March Beta HcG (if available): not available IMPRESSION: There is intrauterine demise. length is 13 mm. Gestational sac measures 2.5 cm equal to 7 weeks 1 day.
[2018-05-25 17:45] VITALS: BP 110/73; PULSE 105; RESP 18; TEMP 98.3
== END 2018-05-25 17:43 | disposition home or self-care (01) ==
LOC: EC 14:23
DX: O03.9 Complete or unspecified spontaneous abortion without complication (principal); O99.331 Smoking (tobacco) complicating pregnancy, first trimester; F17.200 Nicotine dependence, unspecified, uncomplicated; Z3A.01 Less than 8 weeks gestation of pregnancy
CPT/HCPCS: 36415; 76801; 76817; 80053; 84702; 85025; 86900; 86901; 99284

== ENCOUNTER 2018-05-27 15:42 | Emergency (ER) | payer OTHER ==
[2018-05-27 15:50] VITALS: BP 106/63; PULSE 105; RESP 17; TEMP 98.5
[2018-05-27] MEDS ORDERED: MORPHINE SULFATE 4 MG/ML SYRINGE IVP STA (16:48)
[2018-05-27] MEDS ORDERED: KETOROLAC 30 MG/ML 1 ML VIAL IVP STA (16:48)
[2018-05-27 16:55] LABS: Basophils % (A) 0 %; Eosinophils # (A) 0.2 k/uL (0-0.7); Eosinophils % (A) 3 %; HCT 40.1 % (34.0-46.0); HGB 13.2 gm/dL (11.4-16.0); Lymphocytes # (A) 1.9 k/uL (1.0-4.8); Lymphocytes % (A) 27 %; MCH 28.5 pg (25.0-35.0); MCHC 32.9 g/dL (31.0-37.0); MCV 86.6 fL (80.0-100.0); Mean Platelet Volume 6.9; Monocytes # (A) 0.3 k/uL (0-1.0); Monocytes % (A) 5 %; Neutrophils # (A) 4.4 k/uL (1.3-7.7); Neutrophils % (A) 63 %; Platelet Count 443 k/uL (150-450); RBC 4.63 m/uL (3.80-5.40); RDW 14.6 % (11.5-15.5)
--- NOTE | 2018-05-27 17:11 | ED ---
Female Urogenital HPI - General Chief complaint: Vaginal Bleeding Stated complaint: Vaginal bleeding,pain,miscarriage Time Seen by Provider: 05/27/18 16:01 Source: patient, RN notes reviewed, old records reviewed Mode of arrival: ambulatory Limitations: no limitations - History of Present Illness Initial comments: Patient is a 22-year-old female who was seen in the emergency department 2 days go with complaints of vaginal pain bleeding. She was diagnosed with demise and threatened miscarriage 2 days ago. She reports that she has not followed up with HEALTH POLICY ANALYST. Patient states that she has an Rh+ blood type. She denies any other complaints. She states she is having significant pain looking for pain medication for her cramping symptoms. - Related Data Home Medications Medication Instructions Recorded Confirmed Vrd-Zobm-Wgvgh Acid 1 cap PO DAILY 05/25/18 05/27/18 [-U Capsule (formulary)] Ibuprofen [Motrin Ib] 400 mg PO Q6H PRN 05/27/18 05/27/18 Previous Rx's Medication Instructions Recorded traMADol HCL [Ultram] 50 mg PO Q6HR PRN 3 Days #12 tab 05/27/18 Allergies Allergy/AdvReac Type Severity Reaction Status Date / Time No Known Allergies Allergy Verified 05/27/18 16:25 Review of Systems ROS Statement: Those systems with pertinent positive or pertinent negative responses have been documented in the HPI. ROS Other: All systems not noted in ROS Statement are negative. Past Medical History Past Medical History: No Reported History History of Any Multi-Drug Resistant Organisms: None Reported Past Surgical History: No Surgical Hx Reported Past Psychological History: ADD/ADHD, Anxiety, Bipolar, Depression Smoking Status: Current every day smoker Past Alcohol Use History: Occasional Past Drug Use History: None Reported - Past Family History Mother Family Medical History: Cancer Additional Family Medical History / Comment(s): cervical General Exam - General Exam Comments Initial Comments: This is a [id number] female. Alert and oriented 3. Patient appears in no significant distress. Limitations: no limitations General appearance: alert, in no apparent distress Head exam: Present: atraumatic Eye exam: Present: normal appearance, PERRL, EOMI. Absent: scleral icterus, conjunctival injection, periorbital swelling ENT exam: Present: normal exam, mucous membranes moist Neck exam: Present: normal inspection. Absent: tenderness, meningismus, lymphadenopathy Respiratory exam: Present: normal lung sounds bilaterally. Absent: respiratory distress, wheezes, rales, rhonchi, stridor Cardiovascular Exam: Present: regular rate, normal rhythm, normal heart sounds. Absent: systolic murmur, diastolic murmur, rubs, gallop, clicks GI/Abdominal exam: Present: soft, normal bowel sounds. Absent: distended, tenderness, guarding, rebound, rigid Extremities exam: Present: normal inspection, full ROM, normal capillary refill. Absent: tenderness, pedal edema, joint swelling, calf tenderness Back exam: Present: normal inspection Neurological exam: Present: alert, oriented X3, CN II-XII intact Psychiatric exam: Present: normal affect, normal mood Skin exam: Present: warm, dry, intact, normal color. Absent: rash Course Vital Signs 05/27/18 15:46 Temperature 98.5 F Pulse Rate 105 H Respiratory 17 Rate Blood Pressure 106/63 O2 Sat by Pulse 100 Oximetry Medical Decision Making - Medical Decision Making 22 year old female complains of cramping related to miscarriage. She believes she passed fetus and has had Large clotting today. US 2 days ago showed demise in IUP. Today HCG decreased to 4,000 from nearly 14,000. CBC and Hgb are normal. Patient will be discharged with OB follow up, message left for oncall OB for follow up for HCG trending. Return parameters discussed. - Lab Data Result diagrams: 05/27/18 16:40 Lab Results 05/27/18 05/27/18 05/27/18 Range/Units 16:40 16:40 17:30 WBC 7.0 (3.8-10.6) k/uL RBC 4.63 (3.80-5.40) m/uL Hgb 13.2 (11.4-16.0) gm/dL Hct 40.1 (34.0-46.0) % MCV 86.6 (80.0-100.0) fL MCH 28.5 (25.0-35.0) pg MCHC 32.9 (31.0-37.0) g/dL RDW 14.6 (11.5-15.5) % Plt Count 443 (150-450) k/uL Neutrophils % 63 % Lymphocytes % 27 % Monocytes % 5 % Eosinophils % 3 % Basophils % 0 % Neutrophils # 4.4 (1.3-7.7) k/uL Lymphocytes # 1.9 (1.0-4.8) k/uL Monocytes # 0.3 (0-1.0) k/uL Eosinophils # 0.2 (0-0.7) k/uL Basophils # 0.0 (0-0.2) k/uL HCG, Quant 4209.9 mIU/mL Urine Color Light Red Urine Appearance Cloudy H (Clear) Urine pH 6.0 (5.0-8.0) Ur Specific [place] 1.024 (1.001-1.035) Urine Protein 1+ H (Negative) Urine Glucose (UA) Negative (Negative) Urine Ketones Negative (Negative) Urine Blood Large H (Negative) Urine Nitrite Negative (Negative) Urine Bilirubin Negative (Negative) Urine Urobilinogen <2.0 (<2.0) mg/dL Ur Leukocyte Esterase Moderate H (Negative) Urine RBC >182 H (0-5) /hpf Ur Squamous Epith Cells 2 (0-4) /hpf Disposition Clinical Impression: Miscarriage Disposition: HOME SELF-CARE Condition: Good Instructions (If sedation given, give patient instructions): Miscarriage (ED) Additional Instructions: Patient has have close follow-up with primary care physician. Alternate Motrin and Tylenol. Use Ultram as needed in between for pain. Patient should repeat hCG levels on Wednesday. Prescriptions: traMADol HCL [Ultram] 50 mg PO Q6HR PRN 3 Days #12 tab PRN Reason: Pain Is patient prescribed a controlled substance at d/c from ED?: No Referrals: None,Stated [Primary Care Provider] - 1-2 days Corbin Early MD [STAFF PHYSICIAN] - 1-2 days Time of Disposition: 17:57
[2018-05-27 17:57] LABS: Appearance,Urine Cloudy (Clear); Bilirubin,Urine Negative (Negative); Blood,Urine Large (Negative); Color,Urine Light Red; Glucose,Urine (UA) Negative (Negative); Ketones,Urine Negative (Negative); Leukocyte Esterase,Urine Moderate (Negative); Nitrite,Urine Negative (Negative); Protein,Urine 1+ (Negative); RBC,Urine >182 /hpf (0-5); Specific Gravity,Urine 1.024 (1.001-1.035); Squamous Epithelial Cell,Urine 2 /hpf (0-4); Urobilinogen,Urine <2.0 mg/dL (<2.0)
== END 2018-05-27 18:07 | disposition home or self-care (01) ==
LOC: EC 15:42
DX: O03.9 Complete or unspecified spontaneous abortion without complication (principal); F17.200 Nicotine dependence, unspecified, uncomplicated
CPT/HCPCS: 36415; 85025; 81001; 84702; 99284; 96374; 96375; J2270; J1885

== ENCOUNTER 2018-06-15 13:04 | Emergency (ER) | payer OTHER ==
[2018-06-15 13:11] VITALS: RESP 18
[2018-06-15] MEDS ORDERED: SODIUM CHLORIDE 0.9% 1,000 ML IV STA ×2 (14:00)
[2018-06-15] MEDS ORDERED: KETOROLAC 30 MG/ML 1 ML VIAL IVP STA (14:08)
[2018-06-15] MEDS ORDERED: ONDANSETRON 4 MG/2 ML VIAL IVP STA (14:08)
--- NOTE | 2018-06-15 14:18 | ED ---
Abdominal Pain HPI - General Chief Complaint: Abdominal Pain Stated Complaint: abdominal pain/nausea post miscarriage Time Seen by Provider: 06/15/18 13:19 Source: patient, RN notes reviewed, old records reviewed Mode of arrival: ambulatory Limitations: no limitations - History of Present Illness Initial Comments: Patient is a 22-year-old female who presents emergency department today with 3 weeks of right upper and lower abdominal pain. She states she'll occasionally have pain radiating down her legs. Patient states that she noticed her symptoms starting after having a miscarriage. states she is generally fatigued. Patient denies any recent fever, chills, shortness of breath, chest pain, , nausea vomiting, numbness or tingling, dysuria or hematuria, constipation or diarrhea, headaches or visual changes, or any other current symptoms - Related Data Previous Rx's Medication Instructions Recorded Famotidine [Pepcid] 20 mg PO BID #20 tablet 06/15/18 Ibuprofen 600 mg PO TID #20 tablet 06/15/18 Ondansetron [Zofran ODT] 4 mg PO Q8HR #20 tab 06/15/18 Allergies Allergy/AdvReac Type Severity Reaction Status Date / Time No Known Allergies Allergy Verified 06/15/18 13:51 Review of Systems ROS Statement: Those systems with pertinent positive or pertinent negative responses have been documented in the HPI. ROS Other: All systems not noted in ROS Statement are negative. Past Medical History Past Medical History: No Reported History History of Any Multi-Drug Resistant Organisms: None Reported Past Surgical History: No Surgical Hx Reported Past Psychological History: ADD/ADHD, Anxiety, Bipolar, Depression Smoking Status: Current every day smoker Past Alcohol Use History: Occasional Past Drug Use History: None Reported - Past Family History Mother Family Medical History: Cancer Additional Family Medical History / Comment(s): cervical General Exam - General Exam Comments Initial Comments: 22-year-old female. Alert and oriented. No significant distress. Limitations: no limitations General appearance: alert, in no apparent distress Head exam: Present: atraumatic, normocephalic, normal inspection Eye exam: Present: normal appearance, PERRL, EOMI. Absent: scleral icterus, conjunctival injection, periorbital swelling ENT exam: Present: normal exam Neck exam: Present: normal inspection. Absent: tenderness, meningismus, lymphadenopathy Respiratory exam: Present: normal lung sounds bilaterally. Absent: respiratory distress, wheezes, rales, rhonchi, stridor Cardiovascular Exam: Present: regular rate, normal rhythm, normal heart sounds. Absent: systolic murmur, diastolic murmur, rubs, gallop, clicks GI/Abdominal exam: Present: soft, tenderness (Right upper quadrant tenderness), normal bowel sounds. Absent: distended, guarding, rebound, rigid Extremities exam: Present: normal inspection, full ROM, normal capillary refill. Absent: tenderness, pedal edema, joint swelling, calf tenderness Back exam: Present: normal inspection Neurological exam: Present: alert, oriented X3, CN II-XII intact Psychiatric exam: Present: normal affect, normal mood Skin exam: Present: warm, dry, intact, normal color. Absent: rash Course Vital Signs 06/15/18 06/15/18 06/15/18 13:08 16:21 17:51 Temperature 97.7 F 98.5 F Pulse Rate 87 81 72 Respiratory 18 18 18 Rate Blood Pressure 110/65 107/71 106/61 O2 Sat by Pulse 98 99 96 Oximetry Medical Decision Making - Medical Decision Making Patient is 22-year-old female complains of 3 weeks of abdominal pain. She just generally feels unwell. Symptoms started after her miscarriage. Patient states she's not followed up with QUALITY COMPLIANCE COORDINATOR since that time. She denies any further vaginal bleeding or discharge. Patient had some right upper quadrant tenderness on exam. Blood work was reviewed. Mildly elevated liver enzymes compared to last blood work. Her hCG levels found down to 6. This would be expected with h er miscarriage proximally 2 weeks ago. Patient at this time has had no vomiting in ER. On reevaluation stressed comfortably in bed. Patient states that comes and goes after eating. Ultrasound showed no evidence of dilated ducts or cells. This Patient could have biliary colic. Discussed following up with surgeon and PCP. Discharge with a short course of inflammatory pain medication and nausea medicine. All questions answered. - Lab Data Result diagrams: 06/15/18 14:15 06/15/18 14:15 Lab Results 06/15/18 06/15/18 06/15/18 Range/Units 14:15 14:15 14:15 WBC 4.6 (3.8-10.6) k/uL RBC 4.69 (3.80-5.40) m/uL Hgb 12.8 (11.4-16.0) gm/dL Hct 40.8 (34.0-46.0) % MCV 86.9 (80.0-100.0) fL MCH 27.3 (25.0-35.0) pg MCHC 31.4 (31.0-37.0) g/dL RDW 14.4 (11.5-15.5) % Plt Count 386 (150-450) k/uL Neutrophils % 68 % Lymphocytes % 23 % Monocytes % 5 % Eosinophils % 1 % Basophils % 0 % Neutrophils # 3.1 (1.3-7.7) k/uL Lymphocytes # 1.1 (1.0-4.8) k/uL Monocytes # 0.2 (0-1.0) k/uL Eosinophils # 0.1 (0-0.7) k/uL Basophils # 0.0 (0-0.2) k/uL PT 9.8 (9.0-12.0) sec INR 0.9 (<1.2) APTT 23.6 (22.0-30.0) sec Sodium 139 (137-145) mmol/L Potassium 4.8 (3.5-5.1) mmol/L Chloride 103 (98-107) mmol/L Carbon Dioxide 30 (22-30) mmol/L Anion Gap 6 mmol/L BUN 9 (7-17) mg/dL Creatinine 0.64 (0.52-1.04) mg/dL Est GFR (CKD-EPI)AfAm >90 (>60 ml/min/1.73 sqM) Est GFR (CKD-EPI)NonAf >90 (>60 ml/min/1.73 sqM) Glucose 79 (74-99) mg/dL Calcium 9.7 (8.4-10.2) mg/dL Total Bilirubin 0.3 (0.2-1.3) mg/dL AST 52 H (14-36) U/L ALT 95 H (9-52) U/L Alkaline Phosphatase 68 (38-126) U/L Total Protein 7.2 (6.3-8.2) g/dL Albumin 4.4 (3.5-5.0) g/dL Amylase 57 (30-110) U/L Lipase 42 (23-300) U/L HCG, Quant 6.1 mIU/mL Urine Color Urine Appearance (Clear) Urine pH (5.0-8.0) Ur Specific [place] (1.001-1.035) Urine Protein (Negative) Urine Glucose (UA) (Negative) Urine Ketones (Negative) Urine Blood (Negative) Urine Nitrite (Negative) Urine Bilirubin (Negative) Urine Urobilinogen (<2.0) mg/dL Ur Leukocyte Esterase (Negative) 06/15/18 Range/Units 14:15 WBC (3.8-10.6) k/uL RBC (3.80-5.40) m/uL Hgb (11.4-16.0) gm/dL Hct (34.0-46.0) % MCV (80.0-100.0) fL MCH (25.0-35.0) pg MCHC (31.0-37.0) g/dL RDW (11.5-15.5) % Plt Count (150-450) k/uL Neutrophils % % Lymphocytes % % Monocytes % % Eosinophils % % Basophils % % Neutrophils # (1.3-7.7) k/uL Lymphocytes # (1.0-4.8) k/uL Monocytes # (0-1.0) k/uL Eosinophils # (0-0.7) k/uL Basophils # (0-0.2) k/uL PT (9.0-12.0) sec INR (<1.2) APTT (22.0-30.0) sec Sodium (137-145) mmol/L Potassium (3.5-5.1) mmol/L Chloride (98-107) mmol/L Carbon Dioxide (22-30) mmol/L Anion Gap mmol/L BUN (7-17) mg/dL Creatinine (0.52-1.04) mg/dL Est GFR (CKD-EPI)AfAm (>60 ml/min/1.73 sqM) Est GFR (CKD-EPI)NonAf (>60 ml/min/1.73 sqM) Glucose (74-99) mg/dL Calcium (8.4-10.2) mg/dL Total Bilirubin (0.2-1.3) mg/dL AST (14-36) U/L ALT (9-52) U/L Alkaline Phosphatase (38-126) U/L Total Protein (6.3-8.2) g/dL Albumin (3.5-5.0) g/dL Amylase (30-110) U/L Lipase (23-300) U/L HCG, Quant mIU/mL Urine Color Light Yellow Urine Appearance Clear (Clear) Urine pH 7.5 (5.0-8.0) Ur Specific [place] 1.005 (1.001-1.035) Urine Protein Negative (Negative) Urine Glucose (UA) Negative (Negative) Urine Ketones Negative (Negative) Urine Blood Negative (Negative) Urine Nitrite Negative (Negative) Urine Bilirubin Negative (Negative) Urine Urobilinogen <2.0 (<2.0) mg/dL Ur Leukocyte Esterase Negative (Negative) - Radiology Data Radiology results: report reviewed Unremarkable gallbladder ultrasound. No evidence of dilated ducts. Disposition Clinical Impression: Elevated liver enzymes, Abdominal pain Disposition: HOME SELF-CARE Condition: Good Instructions (If sedation given, give patient instructions): Abdominal Pain (ED) Additional Instructions: Patient has a follow-up with primary care doctor. Return to the emergency department if any alarming signs or symptoms occur. Take medication as prescribed for pain. Prescriptions: Ibuprofen 600 mg PO TID #20 tablet Famotidine [Pepcid] 20 mg PO BID #20 tablet Ondansetron [Zofran ODT] 4 mg PO Q8HR #20 tab Is patient prescribed a controlled substance at d/c from ED?: No Referrals: Tameka Edge MD [STAFF PHYSICIAN] - 1-2 days None,Stated [Primary Care Provider] - 1-2 days Mookie Ayoub MD [STAFF PHYSICIAN] - 1-2 days Time of Disposition: 17:25
[2018-06-15 14:31] LABS: Basophils % (A) 0 %; Eosinophils # (A) 0.1 k/uL (0-0.7); Eosinophils % (A) 1 %; HCT 40.8 % (34.0-46.0); HGB 12.8 gm/dL (11.4-16.0); Lymphocytes # (A) 1.1 k/uL (1.0-4.8); Lymphocytes % (A) 23 %; MCH 27.3 pg (25.0-35.0); MCHC 31.4 g/dL (31.0-37.0); MCV 86.9 fL (80.0-100.0); Mean Platelet Volume 6.1; Monocytes # (A) 0.2 k/uL (0-1.0); Monocytes % (A) 5 %; Neutrophils # (A) 3.1 k/uL (1.3-7.7); Neutrophils % (A) 68 %; Platelet Count 386 k/uL (150-450); RBC 4.69 m/uL (3.80-5.40); RDW 14.4 % (11.5-15.5); WBC 4.6 k/uL (3.8-10.6)
[2018-06-15 14:40] LABS: ALT 95 U/L (9-52); AST 52 U/L (14-36); Albumin 4.4 g/dL (3.5-5.0); Alkaline Phosphatase 68 U/L (38-126); Amylase 57 U/L (30-110); Anion Gap 6 mmol/L; Blood Urea Nitrogen 9 mg/dL (7-17); Calcium 9.7 mg/dL (8.4-10.2); Carbon Dioxide 30 mmol/L (22-30); Chloride 103 mmol/L (98-107); Glucose 79 mg/dL (74-99); Lipase 42 U/L (23-300); Potassium 4.8 mmol/L (3.5-5.1); Sodium 139 mmol/L (137-145); Total Bilirubin 0.3 mg/dL (0.2-1.3); Total Protein 7.2 g/dL (6.3-8.2)
[2018-06-15 14:42] LABS: Appearance,Urine Clear (Clear); Bilirubin,Urine Negative (Negative); Blood,Urine Negative (Negative); Color,Urine Light Yellow; Glucose,Urine (UA) Negative (Negative); Ketones,Urine Negative (Negative); Leukocyte Esterase,Urine Negative (Negative); Nitrite,Urine Negative (Negative); PH, Urine 7.5 (5.0-8.0); Protein,Urine Negative (Negative); Specific Gravity,Urine 1.005 (1.001-1.035); Urobilinogen,Urine <2.0 mg/dL (<2.0)
[2018-06-15 14:45] LABS: INR 0.9 (<1.2); Partial Thromboplastin Time 23.6 sec (22.0-30.0); Prothrombin Time 9.8 sec (9.0-12.0)
[2018-06-15 14:55] LABS: HCG,Quantitative Serum 6.1 mIU/mL
[2018-06-15] MEDS ORDERED: MORPHINE SULFATE 4 MG/ML SYRINGE IVP STA (16:07)
--- NOTE | 2018-06-15 16:10 | US ---
EXAMINATION TYPE: US gallbladder DATE OF EXAM: 06/15/2018 COMPARISON: NONE CLINICAL HISTORY: Pain. Abdominal pain x 17 days. Right sided worse. Pt had miscarriage April 2018. EXAM MEASUREMENTS: Liver Length: 16.7 cm Gallbladder Wall: 0.26 cm CBD: 0.28 cm Right Kidney: 10.4 x 6.1 x 3.8 cm Pancreas: Appears wnl Liver: Appears wnl. Upper limits liver length measurement. Gallbladder: Multiple folds seen. Evidence for sonographic Graves's sign: No CBD: wnl Right Kidney: No hydronephrosis or masses seen Pancreas is felt within normal limits towards beginning of study. IVC is seen near hepatic dome. Visu alized liver shows no mass or ductal dilatation. Gallbladder is seen without shadowing mobile gallsto jairon. Limited images of right kidney show no gross hydronephrosis. IMPRESSION: No shadowing mobile gallstones or ultrasound evidence for acute cholecystitis.
[2018-06-15] MEDS ORDERED: traMADol 50 MG STARTER PACK 3 TAB BTL PO STA (17:34)
[2018-06-15 17:53] VITALS: BP 106/61; PULSE 72; TEMP 98.5
== END 2018-06-15 17:57 | disposition home or self-care (01) ==
LOC: EC 13:04
DX: R10.30 Lower abdominal pain, unspecified (principal); R74.8 Abnormal levels of other serum enzymes; R11.0 Nausea; F17.200 Nicotine dependence, unspecified, uncomplicated
CPT/HCPCS: 36415; 80053; 82150; 83690; 85025; 85610; 85730; 81003; 84702; 76705; 99284; 96374; 96375 ×2; 96361 ×3; J2270; J2405; J1885

== ENCOUNTER 2018-06-22 12:38 | Emergency (ER) | payer OTHER ==
[2018-06-22 12:59] VITALS: TEMP 98.2
[2018-06-22] MEDS ORDERED: KETOROLAC 30 MG/ML 1 ML VIAL IVP STA (14:12)
[2018-06-22] MEDS ORDERED: MAG HYDROX/AL HYDROX/SIMETH 30 ML, HYOSCYAMINE ELIXIR 10 ML, CIMETIDINE HCL 300 MG, LID... PO STA ×4 (14:15)
[2018-06-22] MEDS ORDERED: FAMOTIDINE 20 MG/2 ML VIAL IV STA (14:16)
--- NOTE | 2018-06-22 14:16 | ED ---
General Adult HPI - General Chief complaint: Abdominal Pain Stated complaint: abdominal pain Time Seen by Provider: 06/22/18 13:35 Source: patient, RN notes reviewed Mode of arrival: ambulatory Limitations: no limitations - History of Present Illness Initial comments: 22-year-old female without any significant past medical history presents to the emergency department for a chief complaint of right upper quadrant abdominal pain. Patient states this has been going on for several weeks. Patient states she ran out of her tramadol and now does not have anything to help with her pain. Patient denies worsening after eating. Does admit to nausea but denies vomiting. States she is having normal bowel movements. Patient states she had elevated liver enzymes lasting so came to the emergency department. Patient had an ultrasound of the right upper quadrant which did not reveal any abnormalities. This was reviewed by myself. Patient had a miscarriage over 1 month ago. Patient has no other complaints at this time including shortness of breath, chest pain, vomiting, headache, or visual changes. - Related Data Home Medications Medication Instructions Recorded Confirmed Ondansetron [Zofran ODT] 4 mg PO Q8HR PRN 06/22/18 06/22/18 traMADol HCL [Ultram] 50 mg PO TID PRN 06/22/18 06/22/18 Previous Rx's Medication Instructions Recorded Famotidine [Pepcid] 20 mg PO BID #20 tablet 06/15/18 Ibuprofen 600 mg PO TID #20 tablet 06/15/18 Famotidine [Pepcid] 20 mg PO BID #20 tablet 06/22/18 Allergies Allergy/AdvReac Type Severity Reaction Status Date / Time No Known Allergies Allergy Verified 06/22/18 12:59 Review of Systems ROS Statement: Those systems with pertinent positive or pertinent negative responses have been documented in the HPI. ROS Other: All systems not noted in ROS Statement are negative. Past Medical History Past Medical History: No Reported History Additional Past Medical History / Comment(s): elevated liver enzymes History of Any Multi-Drug Resistant Organisms: None Reported Past Surgical History: No Surgical Hx Reported Past Psychological History: ADD/ADHD, Anxiety, Bipolar, Depression Smoking Status: Current every day smoker Past Alcohol Use History: Occasional Past Drug Use History: None Reported - Past Family History Mother Family Medical History: Cancer Additional Family Medical History / Comment(s): cervical General Exam Limitations: no limitations General appearance: alert, in no apparent distress Head exam: Present: atraumatic, normocephalic, normal inspection Eye exam: Present: normal appearance, PERRL, EOMI. Absent: scleral icterus, conjunctival injection, periorbital swelling ENT exam: Present: normal exam, mucous membranes moist Neck exam: Present: normal inspection, full ROM. Absent: tenderness, meningismus, lymphadenopathy Respiratory exam: Present: normal lung sounds bilaterally. Absent: respiratory distress, wheezes, rales, rhonchi, stridor Cardiovascular Exam: Present: regular rate, normal rhythm, normal heart sounds. Absent: systolic murmur, diastolic murmur, rubs, gallop, clicks GI/Abdominal exam: Present: soft, tenderness (minimal tenderness without guarding in RUQ and epigastric area), normal bowel sounds. Absent: distended, guarding, rebound, rigid Neurological exam: Present: alert, oriented X3, CN II-XII intact Psychiatric exam: Present: normal affect, normal mood Course Vital Signs 06/22/18 06/22/18 12:57 15:32 Temperature 98.2 F Pulse Rate 76 79 Respiratory 18 14 Rate Blood Pressure 122/85 108/78 O2 Sat by Pulse 99 98 Oximetry Medical Decision Making - Medical Decision Making 22-year-old female without any significant past medical history presents to the emergency determine for upper quadrant pain times several weeks. Return if out of her tramadol and does not have any Pain. Denies worsening symptoms or eating but does admit to nausea. Normal bowel movements. Patient had elevated liver enzymes class and she is in the emergency department. Exam is unremarkable. Abdomen is soft although tender in the right upper quadrant and epigastric areas. CBC and CMP are unremarkable. Amylase and lipase are within normal limits. Urine is negative. As patient is already had an ultrasound this was not repeated. However I do think patient would benefit from a HIDA scan and possibly Pepcid. Patient will be given a referral to GI. She does have an appointment on Wednesday with primary care. She will go to this. She'll return here if she has any worsening symptoms or if the Pepcid is not helping. - Lab Data Result diagrams: 06/22/18 14:55 06/22/18 14:55 Lab Results 06/22/18 06/22/18 06/22/18 Range/Units 14:55 14:55 14:55 WBC 8.4 (3.8-10.6) k/uL RBC 4.70 (3.80-5.40) m/uL Hgb 12.9 (11.4-16.0) gm/dL Hct 39.6 (34.0-46.0) % MCV 84.2 (80.0-100.0) fL MCH 27.6 (25.0-35.0) pg MCHC 32.7 (31.0-37.0) g/dL RDW 14.2 (11.5-15.5) % Plt Count 523 H (150-450) k/uL Neutrophils % 62 % Lymphocytes % 27 % Monocytes % 4 % Eosinophils % 4 % Basophils % 0 % Neutrophils # 5.2 (1.3-7.7) k/uL Lymphocytes # 2.3 (1.0-4.8) k/uL Monocytes # 0.4 (0-1.0) k/uL Eosinophils # 0.3 (0-0.7) k/uL Basophils # 0.0 (0-0.2) k/uL Hypochromasia Slight Sodium 141 (137-145) mmol/L Potassium 4.5 (3.5-5.1) mmol/L Chloride 104 (98-107) mmol/L Carbon Dioxide 27 (22-30) mmol/L Anion Gap 10 mmol/L BUN 14 (7-17) mg/dL Creatinine 0.58 (0.52-1.04) mg/dL Est GFR (CKD-EPI)AfAm >90 (>60 ml/min/1.73 sqM) Est GFR (CKD-EPI)NonAf >90 (>60 ml/min/1.73 sqM) Glucose 77 (74-99) mg/dL Calcium 10.1 (8.4-10.2) mg/dL Total Bilirubin 0.4 (0.2-1.3) mg/dL AST 24 (14-36) U/L ALT 31 (9-52) U/L Alkaline Phosphatase 74 (38-126) U/L Total Protein 7.5 (6.3-8.2) g/dL Albumin 4.4 (3.5-5.0) g/dL Amylase 57 (30-110) U/L Lipase 56 (23-300) U/L Urine Color Yellow Urine Appearance Clear (Clear) Urine pH 8.5 H (5.0-8.0) Ur Specific [place] 1.017 (1.001-1.035) Urine Protein Negative (Negative) Urine Glucose (UA) Negative (Negative) Urine Ketones Negative (Negative) Urine Blood Negative (Negative) Urine Nitrite Negative (Negative) Urine Bilirubin Negative (Negative) Urine Urobilinogen <2.0 (<2.0) mg/dL Ur Leukocyte Esterase Negative (Negative) Urine HCG, Qual (Not Detectd) 06/22/18 Range/Units 14:55 WBC (3.8-10.6) k/uL RBC (3.80-5.40) m/uL Hgb (11.4-16.0) gm/dL Hct (34.0-46.0) % MCV (80.0-100.0) fL MCH (25.0-35.0) pg MCHC (31.0-37.0) g/dL RDW (11.5-15.5) % Plt Count (150-450) k/uL Neutrophils % % Lymphocytes % % Monocytes % % Eosinophils % % Basophils % % Neutrophils # (1.3-7.7) k/uL Lymphocytes # (1.0-4.8) k/uL Monocytes # (0-1.0) k/uL Eosinophils # (0-0.7) k/uL Basophils # (0-0.2) k/uL Hypochromasia Sodium (137-145) mmol/L Potassium (3.5-5.1) mmol/L Chloride (98-107) mmol/L Carbon Dioxide (22-30) mmol/L Anion Gap mmol/L BUN (7-17) mg/dL Creatinine (0.52-1.04) mg/dL Est GFR (CKD-EPI)AfAm (>60 ml/min/1.73 sqM) Est GFR (CKD-EPI)NonAf (>60 ml/min/1.73 sqM) Glucose (74-99) mg/dL Calcium (8.4-10.2) mg/dL Total Bilirubin (0.2-1.3) mg/dL AST (14-36) U/L ALT (9-52) U/L Alkaline Phosphatase (38-126) U/L Total Protein (6.3-8.2) g/dL Albumin (3.5-5.0) g/dL Amylase (30-110) U/L Lipase (23-300) U/L Urine Color Urine Appearance (Clear) Urine pH (5.0-8.0) Ur Specific [place] (1.001-1.035) Urine Protein (Negative) Urine Glucose (UA) (Negative) Urine Ketones (Negative) Urine Blood (Negative) Urine Nitrite (Negative) Urine Bilirubin (Negative) Urine Urobilinogen (<2.0) mg/dL Ur Leukocyte Esterase (Negative) Urine HCG, Qual Not Detected (Not Detectd) Disposition Clinical Impression: RUQ abdominal pain Disposition: HOME SELF-CARE Condition: Good Instructions (If sedation given, give patient instructions): Abdominal Pain (ED) Additional Instructions: Please take Pepcid as directed. Please follow up with GI in 1-2 days. Return here to the emergency department if you have any worsening symptoms. Prescriptions: Famotidine [Pepcid] 20 mg PO BID #20 tablet Is patient prescribed a controlled substance at d/c from ED?: No Referrals: Tanya Trotter MD [STAFF PHYSICIAN] - 1-2 days Time of Disposition: 15:46
[2018-06-22 14:59] LABS: Appearance,Urine Clear (Clear); Basophils % (A) 0 %; Bilirubin,Urine Negative (Negative); Blood,Urine Negative (Negative); Color,Urine Yellow; Eosinophils # (A) 0.3 k/uL (0-0.7); Eosinophils % (A) 4 %; Glucose,Urine (UA) Negative (Negative); HCT 39.6 % (34.0-46.0); HGB 12.9 gm/dL (11.4-16.0); Hypochromasia Slight; Ketones,Urine Negative (Negative); Leukocyte Esterase,Urine Negative (Negative); Lymphocytes # (A) 2.3 k/uL (1.0-4.8); Lymphocytes % (A) 27 %; MCH 27.6 pg (25.0-35.0); MCHC 32.7 g/dL (31.0-37.0); MCV 84.2 fL (80.0-100.0); Mean Platelet Volume 6.9; Monocytes # (A) 0.4 k/uL (0-1.0); Monocytes % (A) 4 %; Neutrophils # (A) 5.2 k/uL (1.3-7.7); Neutrophils % (A) 62 %; Nitrite,Urine Negative (Negative); PH, Urine 8.5 (5.0-8.0); Platelet Count 523 k/uL (150-450); Protein,Urine Negative (Negative); RDW 14.2 % (11.5-15.5); Specific Gravity,Urine 1.017 (1.001-1.035); Urobilinogen,Urine <2.0 mg/dL (<2.0); WBC 8.4 k/uL (3.8-10.6)
[2018-06-22 15:12] LABS: ALT 31 U/L (9-52); AST 24 U/L (14-36); Albumin 4.4 g/dL (3.5-5.0); Alkaline Phosphatase 74 U/L (38-126); Amylase 57 U/L (30-110); Anion Gap 10 mmol/L; Blood Urea Nitrogen 14 mg/dL (7-17); Calcium 10.1 mg/dL (8.4-10.2); Carbon Dioxide 27 mmol/L (22-30); Chloride 104 mmol/L (98-107); Glucose 77 mg/dL (74-99); Lipase 56 U/L (23-300); Potassium 4.5 mmol/L (3.5-5.1); Sodium 141 mmol/L (137-145); Total Bilirubin 0.4 mg/dL (0.2-1.3); Total Protein 7.5 g/dL (6.3-8.2)
[2018-06-22 15:36] VITALS: BP 108/78; PULSE 79; RESP 14
== END 2018-06-22 16:07 | disposition home or self-care (01) ==
LOC: EC 12:38
DX: R10.11 Right upper quadrant pain (principal); R11.0 Nausea; F17.200 Nicotine dependence, unspecified, uncomplicated
CPT/HCPCS: 36415; 80053; 82150; 83690; 85025; 81003; 81025; 99284; 96374; 96375; J1885

== ENCOUNTER 2018-09-02 22:34 | Emergency (ER) | payer OTHER ==
[2018-09-02 22:41] VITALS: TEMP 98.7
[2018-09-02 22:59] LABS: Anisocytosis Slight; Basophils % (A) 0 %; Eosinophils # (A) 0.2 k/uL (0-0.7); Eosinophils % (A) 2 %; HCT 37.1 % (34.0-46.0); HGB 12.2 gm/dL (11.4-16.0); Hypochromasia Slight; Lymphocytes # (A) 2.7 k/uL (1.0-4.8); Lymphocytes % (A) 33 %; MCH 26.9 pg (25.0-35.0); MCHC 32.9 g/dL (31.0-37.0); Mean Platelet Volume 7.1; Monocytes # (A) 0.4 k/uL (0-1.0); Monocytes % (A) 4 %; Neutrophils # (A) 4.9 k/uL (1.3-7.7); Neutrophils % (A) 58 %; Platelet Count 355 k/uL (150-450); RBC 4.53 m/uL (3.80-5.40); RDW 16.4 % (11.5-15.5); WBC 8.3 k/uL (3.8-10.6)
[2018-09-02 23:08] LABS: ALT 31 U/L (9-52); AST 22 U/L (14-36); African American GFR (CKD) >90 (>60 ml/min/1.73 sqM); Albumin 4.1 g/dL (3.5-5.0); Alkaline Phosphatase 48 U/L (38-126); Anion Gap 10 mmol/L; Blood Urea Nitrogen 15 mg/dL (7-17); Calcium 9.6 mg/dL (8.4-10.2); Carbon Dioxide 24 mmol/L (22-30); Chloride 104 mmol/L (98-107); Glucose 83 mg/dL (74-99); Potassium 3.9 mmol/L (3.5-5.1); Sodium 138 mmol/L (137-145); Total Bilirubin 0.2 mg/dL (0.2-1.3); Total Protein 6.7 g/dL (6.3-8.2)
--- NOTE | 2018-09-03 00:32 | US ---
EXAM: US First Trimester, Transabdominal US , Transvaginal CLINICAL HISTORY: : pain TECHNIQUE: Real-time transabdominal and transvaginal obstetrical ultrasound of the maternal pelvis and a first trimester with image documentation. Transvaginal imaging was used for better evaluation of the fetus and adnexa. COMPARISON: No relevant prior studies available. FINDINGS: Gestation: Single intrauterine with a gestational sac measuring 3.3 cm for an EGA of 8 weeks 3 days. [place]-rump length 1.29 cm for an estimated gestational age of 7 weeks 3 days. Positive heart tones 153 bpm.. Yolk sac is identified measuring 2.5 mm. There is a heterogeneous collection adjacent to the gestational sac measures 6.3 x 1.8 x 4.3 cm.. This could represent a large acute subchorionic hemorrhage. Other etiologies not excluded. Short-term follow-up is recommended. Uterus/cervix: 10.1 x 7.4 x 6.7 cm . Ovaries: The right ovary is 2.8 x 1.5 1.4 cm. Left ovary is 3.4 x 1.8 which 0.0 cm. There is a 1.9 x 1.4 x 2.0 cm left ovarian complex cyst which appears represent a corpus luteal cyst. Normal symmetric blood flow to the left and right ovary Free fluid: Normal free fluid in the posterior cul-de-sac. IMPRESSION: Single intrauterine gestation with a composite ultrasonographic estimated gestational age of 8 weeks 0 days. Positive heart tones 153 bpm. Normal symmetric blood flow to the left and right ovary. Large heterogeneous area adjacent to the gestational sac measuring 6.3 x 1.8 x 4.3 cm and this may represent an acute subchorionic hemorrhage or other etiology is not excluded however and close follow-up evaluation is recommended
--- NOTE | 2018-09-03 00:38 | ED ---
Abdominal Pain HPI - General Chief Complaint: Abdominal Pain Stated Complaint: Vaginal Bleeding 7wks Preg Time Seen by Provider: 09/02/18 22:37 Source: patient Mode of arrival: ambulatory - History of Present Illness Initial Comments: 22-year-old female presenting today for chief complaint vaginal bleeding cramping and . Patient states she plays she is 7 weeks . Patient's last menstrual period was July 01. patient states while at the [employer] about 2 hours prior to presentation she began experiencing the cramping and bleeding. Patient describes a cramping as to menstruation. Denies severe abdominal pain. Patient was concerned of miscarriage. Patient denies any other associated symptoms. Upon arrival patient appears well no signs of acute distress. - Related Data Home Medications Medication Instructions Recorded Confirmed Ondansetron [Zofran ODT] 4 mg PO Q8HR PRN 06/22/18 06/22/18 traMADol HCL [Ultram] 50 mg PO TID PRN 06/22/18 06/22/18 Previous Rx's Medication Instructions Recorded Famotidine [Pepcid] 20 mg PO BID #20 tablet 06/15/18 Ibuprofen 600 mg PO TID #20 tablet 06/15/18 Famotidine [Pepcid] 20 mg PO BID #20 tablet 06/22/18 Allergies Allergy/AdvReac Type Severity Reaction Status Date / Time No Known Allergies Allergy Verified 06/22/18 12:59 Review of Systems ROS Statement: Those systems with pertinent positive or pertinent negative responses have been documented in the HPI. ROS Other: All systems not noted in ROS Statement are negative. Past Medical History Past Medical History: No Reported History Additional Past Medical History / Comment(s): elevated liver enzymes History of Any Multi-Drug Resistant Organisms: None Reported Past Surgical History: No Surgical Hx Reported Past Psychological History: ADD/ADHD, Anxiety, Bipolar, Depression Smoking Status: Current every day smoker Past Alcohol Use History: Occasional Past Drug Use History: None Reported - Past Family History Mother Family Medical History: Cancer Additional Family Medical History / Comment(s): cervical General Exam - General Exam Comments Initial Comments: General: The patient is awake and alert, in no distress, and does not appear acutely ill. Eye: Pupils are equal, round and reactive to light, extra-ocular movements are intact. No nystagmus. There is normal conjunctiva bilaterally. No signs of icterus. Ears, nose, mouth and throat: There are moist mucous membranes and no oral lesions. Neck: The neck is supple, there is no tenderness or JVD. Cardiovascular: There is a regular rate and rhythm. No murmur, rub or gallop is appreciated. Respiratory: Lungs are clear to auscultation, respirations are non-labored, breath sounds are equal. No wheezes, stridor, rales, or rhonchi. Gastrointestinal: Soft, non-distended, non-tender abdomen without masses or organomegaly noted. There is no rebound or guarding present. Pelvic: Os closed, blood in vaginal vault. No cervical motion or adnexal tenderness. Musculoskeletal: Normal ROM, no tenderness. Strength 5/5. Sensation intact. Pulses equal bilaterally 2+. Neurological: A&O x 3. CN II-XII intact, There are no obvious motor or sensory deficits. Coordination appears grossly intact. Speech is normal. Skin: Skin is warm and dry and no rashes or lesions are noted. Psychiatric: Cooperative, appropriate mood & affect, normal judgment. Course Vital Signs 09/02/18 09/03/18 22:37 00:53 Temperature 98.7 F Pulse Rate 90 78 Respiratory 17 16 Rate Blood Pressure 128/77 110/74 O2 Sat by Pulse 98 97 Oximetry Medical Decision Making - Medical Decision Making Well appearing 22 yo female. US revealed findings concerning for possible chorionic hemorrhage, IUP with HR 153 noted. Patient had no adnexal or cervical motion tenderness on exam. Blood type B+. Patient states she is ready for d/c. Differential diagnosis includes threatened miscarriage. I discussed the findings with him by Dr. Osei at this time. Patient stable for discharge with outpatient [employer] follow-up within next week. Return parameters including persistent heavy bleeding, persistent or increasing pain were discussed at length the patient verbalizes understanding. Patient was discharged appearing well - Lab Data Result diagrams: 09/02/18 22:50 09/02/18 22:50 Lab Results 09/02/18 09/02/18 09/02/18 Range/Units 22:50 22:50 22:50 WBC 8.3 (3.8-10.6) k/uL RBC 4.53 (3.80-5.40) m/uL Hgb 12.2 (11.4-16.0) gm/dL Hct 37.1 (34.0-46.0) % MCV 82.0 (80.0-100.0) fL MCH 26.9 (25.0-35.0) pg MCHC 32.9 (31.0-37.0) g/dL RDW 16.4 H (11.5-15.5) % Plt Count 355 (150-450) k/uL Neutrophils % 58 % Lymphocytes % 33 % Monocytes % 4 % Eosinophils % 2 % Basophils % 0 % Neutrophils # 4.9 (1.3-7.7) k/uL Lymphocytes # 2.7 (1.0-4.8) k/uL Monocytes # 0.4 (0-1.0) k/uL Eosinophils # 0.2 (0-0.7) k/uL Basophils # 0.0 (0-0.2) k/uL Hypochromasia Slight Anisocytosis Slight Sodium 138 (137-145) mmol/L Potassium 3.9 (3.5-5.1) mmol/L Chloride 104 (98-107) mmol/L Carbon Dioxide 24 (22-30) mmol/L Anion Gap 10 mmol/L BUN 15 (7-17) mg/dL Creatinine 0.71 (0.52-1.04) mg/dL Est GFR (CKD-EPI)AfAm >90 (>60 ml/min/1.73 sqM) Est GFR (CKD-EPI)NonAf >90 (>60 ml/min/1.73 sqM) Glucose 83 (74-99) mg/dL Calcium 9.6 (8.4-10.2) mg/dL Total Bilirubin 0.2 (0.2-1.3) mg/dL AST 22 (14-36) U/L ALT 31 (9-52) U/L Alkaline Phosphatase 48 (38-126) U/L Total Protein 6.7 (6.3-8.2) g/dL Albumin 4.1 (3.5-5.0) g/dL HCG, Quant 493142.0 mIU/mL Blood Type B Positive Blood Type Recheck No Disposition Clinical Impression: Threatened miscarriage, Subchorionic hematoma in first trimester Disposition: HOME SELF-CARE Condition: Good Instructions (If sedation given, give patient instructions): Threatened Miscarriage (ED), Subchorionic Hemorrhage (ED) Additional Instructions: Please use medication as discussed. Please follow-up with family doctor in the next 2 days of symptoms have not improved. Please return to emergency room if the symptoms increase or worsen or for any other concerns. Is patient prescribed a controlled substance at d/c from ED?: No Referrals: Pita Lowe MD [Primary Care Provider] - 1-2 days Chantal Amanda DO [Doctor of Osteopathic Medicine] - 1-2 days Dennis Blackburn MD [STAFF PHYSICIAN] - 1-2 days Time of Disposition: 00:37
[2018-09-03 00:54] VITALS: BP 110/74; PULSE 78; RESP 16
== END 2018-09-03 00:55 | disposition home or self-care (01) ==
LOC: EC 22:34
DX: O20.8 Other hemorrhage in early pregnancy (principal); O99.331 Smoking (tobacco) complicating pregnancy, first trimester; F17.200 Nicotine dependence, unspecified, uncomplicated; Z3A.08 8 weeks gestation of pregnancy
CPT/HCPCS: 36415; 76801; 80053; 84702; 85025; 86900; 86901; 99284

== ENCOUNTER 2018-09-13 15:40 | Emergency (ER) | payer OTHER ==
[2018-09-13] MEDS ORDERED: SODIUM CHLORIDE 0.9% 1,000 ML IV ONE (16:07)
[2018-09-13 16:27] LABS: Anisocytosis Slight; Basophils % (A) 0 %; Eosinophils # (A) 0.1 k/uL (0-0.7); Eosinophils % (A) 1 %; HCT 38.9 % (34.0-46.0); HGB 12.7 gm/dL (11.4-16.0); Lymphocytes # (A) 2.4 k/uL (1.0-4.8); Lymphocytes % (A) 28 %; MCH 26.7 pg (25.0-35.0); MCHC 32.7 g/dL (31.0-37.0); MCV 81.5 fL (80.0-100.0); Mean Platelet Volume 6.9; Monocytes # (A) 0.4 k/uL (0-1.0); Monocytes % (A) 5 %; Neutrophils # (A) 5.4 k/uL (1.3-7.7); Neutrophils % (A) 64 %; Platelet Count 386 k/uL (150-450); RBC 4.77 m/uL (3.80-5.40); RDW 17.1 % (11.5-15.5); WBC 8.4 k/uL (3.8-10.6)
[2018-09-13 16:35] LABS: African American GFR (CKD) >90 (>60 ml/min/1.73 sqM); Anion Gap 10 mmol/L; Blood Urea Nitrogen 10 mg/dL (7-17); Carbon Dioxide 26 mmol/L (22-30); Chloride 102 mmol/L (98-107); Glucose 76 mg/dL (74-99); Potassium 3.5 mmol/L (3.5-5.1); Sodium 138 mmol/L (137-145)
[2018-09-13 16:36] LABS: INR 0.9 (<1.2); Partial Thromboplastin Time 23.3 sec (22.0-30.0)
[2018-09-13 16:58] LABS: Appearance,Urine Cloudy (Clear); Bacteria,Urine Rare /hpf; Bilirubin,Urine Negative (Negative); Blood,Urine Moderate (Negative); Color,Urine Yellow; Glucose,Urine (UA) Negative (Negative); Ketones,Urine Negative (Negative); Leukocyte Esterase,Urine Moderate (Negative); Mucus,Urine Occasional /hpf; Nitrite,Urine Negative (Negative); Protein,Urine Trace (Negative); RBC,Urine 1 /hpf (0-5); Specific Gravity,Urine 1.026 (1.001-1.035); Squamous Epithelial Cell,Urine 25 /hpf (0-4); Urobilinogen,Urine <2.0 mg/dL (<2.0); WBC,Urine 8 /hpf (0-5)
--- NOTE | 2018-09-13 18:22 | US ---
EXAMINATION TYPE: Transabdominal DATE OF EXAM: 09/13/2018 5:57 PM COMPARISON: US CLINICAL HISTORY: Pain. Hx miscarriage. Vaginal bleeding this morning. Pain since this morning. Smoke r. A1. EXAM PERFORMED: Transabdominal (TA) EXAM MEASUREMENTS: GESTATIONAL AGE / DATING Physician Established: Not yet established Dates by LMP: (10 weeks/1 day) EDC: 04/10/2019 Dates by First Scan: (9 weeks/4 days) EDC: 04/14/2019 Dates by Current Scan for: (9 weeks/4 days) EDC: 04/14/2019 MATERNAL ANATOMY Uterus: 10.9 x 8.5 x 8.1 cm. Right Ovary: not seen Left Ovary: 2.9 x 1.7 x 2.0 cm Post CDS / Adnexa: appears wnl Presence of free fluid: none seen Presence of corpus luteal cyst: none seen Presence of subchorionic bleed: Hypoechoic area seen adjacent to the gestational sac measurin.1 x 4.4 x 2.7 cm. A second hypoechoic area seen adjacent to the gestational sac measures: 3.5 x 1.1 x 0. 6 cm. GESTATION / SURVEY CRL: 2.73 (9 weeks/4 days) Yolk Sac (normal less than 6mm): Spherical in morphology, measuring 2.9 mm. Heart Rate: 172 bpm Rhythm: Regularly regular. IUP: Viable IUP in the uterine fundus. Date of LMP: 07/04/2018 Beta HcG (if available): 137,621.0 IMPRESSION: 1) Single viable IUP. 2) Subchorionic hemorrhages noted, one measuring 4.4 x 4.1 x 2.7 cm and the other measuring 3.5 x 1. 1 x 0.6 cm.
--- NOTE | 2018-09-13 19:10 | ED ---
General Adult HPI - General Chief complaint: Urogenital Stated complaint: 10 weeks, Vaginal bleeding Time Seen by Provider: 09/13/18 16:07 Source: patient, RN notes reviewed Mode of arrival: ambulatory Limitations: no limitations - History of Present Illness Initial comments: Elsa is a 22-year-old female who presents to the emergency department for a chief complaint of vaginal bleeding. Patient states she is currently 10 weeks . States she has been bleeding since last night. States it is likely an spotting in nature. Does admit to some cramping but denies any significant abdominal pain. Denies dysuria. States she has had a confirmed intrauterine . States she is following up with an CREDIT RATING CHECKER at Dr. Amanda's office on the but is unsure of the doctor's name. States she is taking vitamins. Patient has no other complaints at this time including shortness of breath, chest pain, abdominal pain, nausea or vomiting, headache, or visual changes. - Related Data Home Medications Medication Instructions Recorded Confirmed [id number] Acid 1 cap PO DAILY 09/13/18 09/13/18 [-U Capsule (formulary)] Previous Rx's Medication Instructions Recorded Cephalexin [Keflex] 500 mg PO Q6HR 3 Days #12 cap 09/13/18 Allergies Allergy/AdvReac Type Severity Reaction Status Date / Time No Known Allergies Allergy Verified 09/13/18 16:58 Review of Systems ROS Statement: Those systems with pertinent positive or pertinent negative responses have been documented in the HPI. ROS Other: All systems not noted in ROS Statement are negative. Past Medical History Past Medical History: No Reported History Additional Past Medical History / Comment(s): elevated liver enzymes History of Any Multi-Drug Resistant Organisms: None Reported Past Surgical History: No Surgical Hx Reported Past Psychological History: ADD/ADHD, Anxiety, Bipolar, Depression Smoking Status: Current every day smoker Past Alcohol Use History: Occasional Past Drug Use History: None Reported - Past Family History Mother Family Medical History: Cancer Additional Family Medical History / Comment(s): cervical General Exam Limitations: no limitations General appearance: alert, in no apparent distress Head exam: Present: atraumatic, normocephalic, normal inspection Eye exam: Present: normal appearance, PERRL, EOMI. Absent: scleral icterus, conjunctival injection, periorbital swelling ENT exam: Present: normal exam, mucous membranes moist Neck exam: Present: normal inspection, full ROM. Absent: tenderness, meningismus, lymphadenopathy Respiratory exam: Present: normal lung sounds bilaterally. Absent: respiratory distress, wheezes, rales, rhonchi, stridor Cardiovascular Exam: Present: regular rate, normal rhythm, normal heart sounds. Absent: systolic murmur, diastolic murmur, rubs, gallop, clicks GI/Abdominal exam: Present: soft, normal bowel sounds. Absent: distended, tenderness, guarding, rebound, rigid External exam: Present: normal external exam. Absent: erythema, swelling, lesions, lacerations, ecchymosis Speculum exam: Present: normal speculum exam. Absent: erythema, vaginal discharge, cervical discharge, vaginal bleeding (No vaginal bleeding noted at this time), foreign body, tissue, laceration By manual exam: Present: normal by manual exam. Absent: cervical motion tenderness, adnexal tenderness, adnexal mass, uterine enlargement, uterine tenderness Neurological exam: Present: alert, oriented X3, CN II-XII intact Psychiatric exam: Present: normal affect, normal mood Course Vital Signs 09/13/18 15:55 Temperature 98.1 F Pulse Rate 100 Respiratory 18 Rate Blood Pressure 124/82 O2 Sat by Pulse 100 Oximetry Medical Decision Making - Medical Decision Making Elsa is a 22-year-old female who presents to the emergency department for vaginal bleeding at 10 weeks . Patient states the bleeding started last night. Has already had a confirmed intrauterine . Patient has had bleeding a couple weeks ago but that resolved. On exam no vaginal bleeding noted. Exam is unremarkable. Vitals are stable. CBC and CMP are unremarkable. Blood type is B+. Trichomonas is negative. Urine does have 8 white cells and will be treated with Keflex. ultrasound does show a single viable IUP. However there are subchorionic hemorrhages noted. Discussed this with patient. Patient is aware of threatened miscarriage. Discussed return parameters including increased pain, increased bleeding, or any other worsening symptoms. Otherwise patient will follow up with her CREDIT RATING CHECKER as soon as possible. - Lab Data Result diagrams: 09/13/18 16:18 09/13/18 16:18 Lab Results 09/13/18 09/13/18 09/13/18 Range/Units 16:18 16:18 16:18 WBC 8.4 (3.8-10.6) k/uL RBC 4.77 (3.80-5.40) m/uL Hgb 12.7 (11.4-16.0) gm/dL Hct 38.9 (34.0-46.0) % MCV 81.5 (80.0-100.0) fL MCH 26.7 (25.0-35.0) pg MCHC 32.7 (31.0-37.0) g/dL RDW 17.1 H (11.5-15.5) % Plt Count 386 (150-450) k/uL Neutrophils % 64 % Lymphocytes % 28 % Monocytes % 5 % Eosinophils % 1 % Basophils % 0 % Neutrophils # 5.4 (1.3-7.7) k/uL Lymphocytes # 2.4 (1.0-4.8) k/uL Monocytes # 0.4 (0-1.0) k/uL Eosinophils # 0.1 (0-0.7) k/uL Basophils # 0.0 (0-0.2) k/uL Anisocytosis Slight PT 10.0 (9.0-12.0) sec INR 0.9 (<1.2) APTT 23.3 (22.0-30.0) sec Sodium 138 (137-145) mmol/L Potassium 3.5 (3.5-5.1) mmol/L Chloride 102 (98-107) mmol/L Carbon Dioxide 26 (22-30) mmol/L Anion Gap 10 mmol/L BUN 10 (7-17) mg/dL Creatinine 0.56 (0.52-1.04) mg/dL Est GFR (CKD-EPI)AfAm >90 (>60 ml/min/1.73 sqM) Est GFR (CKD-EPI)NonAf >90 (>60 ml/min/1.73 sqM) Glucose 76 (74-99) mg/dL Calcium 10.0 (8.4-10.2) mg/dL HCG, Quant 862303.0 mIU/mL Urine Color Urine Appearance (Clear) Urine pH (5.0-8.0) Ur Specific Williamson (1.001-1.035) Urine Protein (Negative) Urine Glucose (UA) (Negative) Urine Ketones (Negative) Urine Blood (Negative) Urine Nitrite (Negative) Urine Bilirubin (Negative) Urine Urobilinogen (<2.0) mg/dL Ur Leukocyte Esterase (Negative) Urine RBC (0-5) /hpf Urine WBC (0-5) /hpf Ur Squamous Epith Cells (0-4) /hpf Urine Bacteria (None) /hpf Urine Mucus (None) /hpf Trichomonas Ag (Rapid) (Negative) Blood Type Blood Type Recheck 09/13/18 09/13/18 09/13/18 Range/Units 16:23 16:30 18:25 WBC (3.8-10.6) k/uL RBC (3.80-5.40) m/uL Hgb (11.4-16.0) gm/dL Hct (34.0-46.0) % MCV (80.0-100.0) fL MCH (25.0-35.0) pg MCHC (31.0-37.0) g/dL RDW (11.5-15.5) % Plt Count (150-450) k/uL Neutrophils % % Lymphocytes % % Monocytes % % Eosinophils % % Basophils % % Neutrophils # (1.3-7.7) k/uL Lymphocytes # (1.0-4.8) k/uL Monocytes # (0-1.0) k/uL Eosinophils # (0-0.7) k/uL Basophils # (0-0.2) k/uL Anisocytosis PT (9.0-12.0) sec INR (<1.2) APTT (22.0-30.0) sec Sodium (137-145) mmol/L Potassium (3.5-5.1) mmol/L Chloride (98-107) mmol/L Carbon Dioxide (22-30) mmol/L Anion Gap mmol/L BUN (7-17) mg/dL Creatinine (0.52-1.04) mg/dL Est GFR (CKD-EPI)AfAm (>60 ml/min/1.73 sqM) Est GFR (CKD-EPI)NonAf (>60 ml/min/1.73 sqM) Glucose (74-99) mg/dL Calcium (8.4-10.2) mg/dL HCG, Quant mIU/mL Urine Color Yellow Urine Appearance Cloudy H (Clear) Urine pH 7.0 (5.0-8.0) Ur Specific Williamson 1.026 (1.001-1.035) Urine Protein Trace H (Negative) Urine Glucose (UA) Negative (Negative) Urine Ketones Negative (Negative) Urine Blood Moderate H (Negative) Urine Nitrite Negative (Negative) Urine Bilirubin Negative (Negative) Urine Urobilinogen <2.0 (<2.0) mg/dL Ur Leukocyte Esterase Moderate H (Negative) Urine RBC 1 (0-5) /hpf Urine WBC 8 H (0-5) /hpf Ur Squamous Epith Cells 25 H (0-4) /hpf Urine Bacteria Rare H (None) /hpf Urine Mucus Occasional H (None) /hpf Trichomonas Ag (Rapid) Negative (Negative) Blood Type B Positive Blood Type Recheck No Disposition Clinical Impression: Threatened miscarriage, Urinary tract infection, Subchorionic bleed Disposition: HOME SELF-CARE Condition: Good Instructions (If sedation given, give patient instructions): Threatened Miscarriage (ED) Additional Instructions: Please follow up with CREDIT RATING CHECKER in one to 2 days. Return to the emergency department if you have increased pain or heavy bleeding or any other worsening symptoms. Prescriptions: Cephalexin [Keflex] 500 mg PO Q6HR 3 Days #12 cap Is patient prescribed a controlled substance at d/c from ED?: No Referrals: Pita Lowe MD [Primary Care Provider] - 1-2 days Time of Disposition: 19:09
[2018-09-13 19:29] VITALS: BP 122/80; PULSE 92; RESP 16; TEMP 98
[2018-09-14 11:07] LABS: Chlamydia trachomatis rRNA Not detected (Not detected); Neisseria gonorrhoeae rRNA Not detected (Not detected)
== END 2018-09-13 19:28 | disposition home or self-care (01) ==
LOC: EC 15:40
DX: O20.0 Threatened abortion (principal); O23.41 Unspecified infection of urinary tract in pregnancy, first trimester; Z67.20 Type B blood, Rh positive; O99.331 Smoking (tobacco) complicating pregnancy, first trimester; F17.200 Nicotine dependence, unspecified, uncomplicated; Z3A.10 10 weeks gestation of pregnancy
CPT/HCPCS: 36415; 76801; 80048; 81001; 84702; 85025; 85610; 85730; 86900; 86901; 87086; 87491; 87591; 87808; 96360; 99284

== ENCOUNTER → 2018-09-27 | Outpatient (CLI) | payer OTHER ==
--- NOTE | 2018-09-28 07:09 | US ---
EXAMINATION TYPE: Transabdominal DATE OF EXAM: 09/27/2018 4:39 PM COMPARISON: 09/13/2018 ultrasound CLINICAL HISTORY: O46.91 spotting 1st trimester,Z36 f/u to prev Abn. EXAM PERFORMED: Transabdominal (TA) EXAM MEASUREMENTS: GESTATIONAL AGE / DATING Physician Established: Not yet established Dates by LMP: (12 weeks/1 days) EDC: 02/08/2020 Dates by First Scan: (11 weeks/4 days) EDC: 04/14/2019 Dates by Current Scan for: (11 weeks/5 days) EDC: 04/13/2019 MATERNAL ANATOMY Uterus: 14.0 x 6.9 x 9.3 cm Right Ovary: 3.1 x 3.3 x 3.2 cm Left Ovary: 2.8 x 2.1 x 2.9 cm Post CDS / Adnexa: wnl Presence of free fluid: none Presence of subchorionic bleed: large hypoechoic area adjacent to sac measures 6.1 x 2.1 x 4.1 cm GESTATION / SURVEY CRL: 4.9 cm (11 weeks/5 days) Yolk Sac (normal less than 6mm): not seen Heart Rate: 159 bpm Rhythm: Normal IUP: Live IUP Date of LMP: 07/04/2018 Live IUP that correlates with LMP. Large subchorionic bleed. IMPRESSION: Single live intrauterine with a calculated sonographic age of 11 weeks and 5 days and estim ated date of delivery of 04/13/2019, concordant with menstrual age. The of subchorionic hemorrhage see n on the prior of 09/13/2018 has enlarged now measuring up to 6.1 cm and previously measuring up to 4. 1 cm.
== END | disposition home or self-care (01) ==
LOC: RADUSWWP 16:20
PROVIDERS: ATTEND Obstetrics & Gynecology
DX: O46.91 Antepartum hemorrhage, unspecified, first trimester (principal); Z3A.11 11 weeks gestation of pregnancy
CPT/HCPCS: 76801

== ENCOUNTER 2019-09-12 23:44 | Emergency (ER) | payer OTHER ==
[2019-09-12 23:51] VITALS: TEMP 98
[2019-09-13 00:05] VITALS: BP 125/80; PULSE 102; RESP 20
[2019-09-13] MEDS ORDERED: ACET/COD 300 MG/30 MG STARTER PACK 6 TAB BTL PO STA (00:29)
[2019-09-13] MEDS ORDERED: MORPHINE SULFATE 4 MG/ML SYRINGE IM STA (00:29)
[2019-09-13] MEDS ORDERED: PENICILLIN VK 500MG STARTER 4 TAB BTL PO STA (00:29)
[2019-09-13] MEDS ORDERED: KETOROLAC 30 MG/ML 1 ML VIAL IM STA (00:29)
--- NOTE | 2019-09-13 00:31 | ED ---
ENT HPI - General Chief complaint: Dental/Oral Stated complaint: Dental Pain Time Seen by Provider: 09/12/19 23:55 Source: patient Mode of arrival: ambulatory Limitations: no limitations - History of Present Illness Initial comments: 23-year-old female patient presents to the emergency department today for evaluation of right-sided dental pain. Patient states she's been having dental pain on and off for quite some time. States she recently broke her wisdom tooth off. States the last 3 days she has had increased pain to the lower dentition. States that she does have some swelling around her gums. Denies fever or chills. Denies any trismus or difficulty swallowing. Denies any swelling beneath her tongue. She denies any nausea or vomiting. Patient denies any recent rash, cough, shortness of breath, chest pain, abdominal pain, diarrhea, constipation, back pain, numbness, tingling, dizziness, weakness, hematuria, dysuria, urinary urgency, urinary frequency, headache, visual changes, or any other complaints. - Related Data Previous Rx's Medication Instructions Recorded Penicillin V Potassium [Pen Vee K] 500 mg PO Q6H #40 tablet 09/13/19 Allergies Allergy/AdvReac Type Severity Reaction Status Date / Time No Known Allergies Allergy Verified 09/12/19 23:52 Review of Systems ROS Statement: Those systems with pertinent positive or pertinent negative responses have been documented in the HPI. ROS Other: All systems not noted in ROS Statement are negative. Past Medical History Past Medical History: No Reported History Additional Past Medical History / Comment(s): elevated liver enzymes History of Any Multi-Drug Resistant Organisms: None Reported Past Surgical History: No Surgical Hx Reported Past Anesthesia/Blood Transfusion Reactions: No Reported Reaction Past Psychological History: ADD/ADHD, Anxiety, Bipolar, Depression Smoking Status: Current every day smoker Past Alcohol Use History: Occasional Past Drug Use History: Marijuana - Past Family History Mother Family Medical History: Cancer Additional Family Medical History / Comment(s): cervical General Exam Limitations: no limitations General appearance: alert, in no apparent distress, other (Physical well- developed, well-nourished adult female patient in no acute distress. Vital signs upon presentation are temperature 98.0F, pulse 102, respirations 20, blood pressure 125/80, pulse ox 100% on room air.) ENT exam: Present: mucous membranes moist, other (Patient has a broken wisdom tooth to the right lower dentition, there is exposed dental pulp. There is surrounding gingival erythema and hyperplasia. No evidence of drainable abscess.) Neck exam: Present: normal inspection, full ROM. Absent: tenderness, meningismus, lymphadenopathy Respiratory exam: Present: normal lung sounds bilaterally. Absent: respiratory distress, wheezes, rales, rhonchi, stridor Cardiovascular Exam: Present: regular rate, normal rhythm, normal heart sounds. Absent: systolic murmur, diastolic murmur, rubs, gallop, clicks Neurological exam: Present: alert, oriented X3, CN II-XII intact Psychiatric exam: Present: normal affect, normal mood Skin exam: Present: warm, dry, intact, normal color. Absent: rash Course Vital Signs 09/12/19 23:48 Temperature 98 F Pulse Rate 102 H Respiratory 20 Rate Blood Pressure 125/80 O2 Sat by Pulse 100 Oximetry Medical Decision Making - Medical Decision Making 23-year-old female patient presented to the emergency department today for evaluation of right lower dental pain. Physical examination did reveal a broken right lower wisdom tooth with exposure of pulp. No sign of drainable abscess. There is gingival erythema and hyperplasia. We will start pen VK. She is given pain medications while here. She'll be discharged to follow-up with dentistry for recheck as soon as possible. Return parameters were discussed in detail. She verbalizes understanding and agrees with this plan. Disposition Clinical Impression: Dental infection Disposition: HOME SELF-CARE Condition: Good Instructions (If sedation given, give patient instructions): Dental Abscess (ED), Toothache (ED) Additional Instructions: Take medications as directed. Follow up with dentistry as soon as possible. Follow up with your primary care physician for recheck in 1-2 days. Return to the emergency department immediately for any new, worsening, or concerning symptoms. Prescriptions: Penicillin V Potassium [Pen Vee K] 500 mg PO Q6H #40 tablet Is patient prescribed a controlled substance at d/c from ED?: No Referrals: None,Stated [Primary Care Provider] - 1-2 days Time of Disposition: 00:31
== END 2019-09-13 00:47 | disposition home or self-care (01) ==
LOC: EC 23:44
DX: K04.7 Periapical abscess without sinus (principal); K06.1 Gingival enlargement; K03.81 Cracked tooth; F17.200 Nicotine dependence, unspecified, uncomplicated
CPT/HCPCS: 99282; 96372 ×2; J2270; J1885

== ENCOUNTER 2019-12-04 13:22 | Emergency (ER) | payer OTHER ==
[2019-12-04 13:32] VITALS: BP 121/51; PULSE 96; RESP 16; TEMP 98.4
--- NOTE | 2019-12-04 13:51 | ED ---
ENT HPI - General Chief complaint: Dental/Oral Stated complaint: Dental Pain Time Seen by Provider: 12/04/19 13:32 Source: patient Mode of arrival: ambulatory Limitations: no limitations - History of Present Illness Initial comments: Patient is a 23-year-old female presenting to emergency Department with a chief complaint of dental pain. Patient states this started about 3 days ago and the pain is located along her gum was a top and bottom. Patient states she has been alternating between Tylenol and Motrin with no significant from his symptoms. P atient states she has been applying Orajel which helped but did not completely resolve the pain. She does report some dental work performed the last several months but nothing recently. States there was no trauma to her oral cavity recently. Denies any history of herpes virus. Denies any night sweats or chills. Denies any dysphagia or odontophagia. - Related Data Previous Rx's Medication Instructions Recorded Penicillin V Potassium [Pen Vee K] 500 mg PO Q6H #40 tablet 09/13/19 Allergies Allergy/AdvReac Type Severity Reaction Status Date / Time No Known Allergies Allergy Verified 12/04/19 13:32 Review of Systems ROS Statement: Those systems with pertinent positive or pertinent negative responses have been documented in the HPI. ROS Other: All systems not noted in ROS Statement are negative. Past Medical History Past Medical History: No Reported History Additional Past Medical History / Comment(s): elevated liver enzymes History of Any Multi-Drug Resistant Organisms: None Reported Past Surgical History: No Surgical Hx Reported Past Anesthesia/Blood Transfusion Reactions: No Reported Reaction Past Psychological History: ADD/ADHD, Anxiety, Bipolar, Depression Smoking Status: Current every day smoker Past Alcohol Use History: Occasional Past Drug Use History: None Reported - Past Family History Mother Family Medical History: Cancer Additional Family Medical History / Comment(s): cervical General Exam Limitations: no limitations General appearance: alert, in no apparent distress Head exam: Present: atraumatic, normocephalic, normal inspection Eye exam: Present: normal appearance, PERRL, EOMI Pupils: Present: normal accommodation ENT exam: Present: normal exam, mucous membranes moist, TM's normal bilaterally, normal external ear exam. Absent: normal oropharynx (Multiple herpetic lesions along the gumlines on top and bottom.), other (No swelling detected on the floor the mouth.) Neck exam: Present: normal inspection, full ROM. Absent: tenderness, lymphadenopathy Respiratory exam: Present: normal lung sounds bilaterally. Absent: respiratory distress, wheezes, rales Cardiovascular Exam: Present: regular rate, normal rhythm, normal heart sounds Extremities exam: Present: normal inspection, full ROM, normal capillary refill. Absent: tenderness Back exam: Present: normal inspection, full ROM. Absent: tenderness, CVA tenderness (R), CVA tenderness (L), muscle spasm Neurological exam: Present: alert, oriented X3, CN II-XII intact, normal gait Psychiatric exam: Present: normal affect, normal mood Skin exam: Present: warm, dry, intact, normal color Course Vital Signs 12/04/19 13:27 Temperature 98.4 F Pulse Rate 96 Respiratory 16 Rate Blood Pressure 121/51 O2 Sat by Pulse 97 Oximetry Medical Decision Making - Medical Decision Making Patient is a 23-year-old female presenting to emergency Department with a chief complaint of dental pain. Physical examination, patient appears to have herpetic-like lesions on the gumlines on top and bottom of the oral cavity. I suspect patient has herpangina. Patient was advised to continue alternating between Tylenol and Motrin for pain control. She was also advised to use Magic mouthwash to help alleviate some of the discomfort. Otherwise, patient has good dentition and no signs of periapical abscesses or dental cavities. Patient was also given Tylenol 3 starter pack. She was advised not to drive or operate heavy machinery taking the medication. She was advised to follow with a dentist. Strict return parameters were thoroughly discussed with patient who is understanding and agreeable. Case discussed with physician. Disposition Clinical Impression: Acute herpangina Disposition: HOME SELF-CARE Condition: Stable Instructions (If sedation given, give patient instructions): Toothache (ED), Gingivostomatitis (ED) Additional Instructions: Take Tylenol 3 as prescribed. Alternate between Tylenol and Motrin for pain control. Do not drive or operate heavy machinery taking medication. Obtain [id number] Magic mouthwash. Follow with a dentist. Return to emergency department if symptoms worsen. Is patient prescribed a controlled substance at d/c from ED?: No Referrals: None,Stated [Primary Care Provider] - 1-2 days Time of Disposition: 13:59
[2019-12-04] MEDS ORDERED: ACET/COD 300 MG/30 MG STARTER PACK 6 TAB BTL PO STA (13:57)
== END 2019-12-04 14:43 | disposition home or self-care (01) ==
LOC: EC 13:22
DX: B08.5 Enteroviral vesicular pharyngitis (principal); K08.89 Other specified disorders of teeth and supporting structures; F17.200 Nicotine dependence, unspecified, uncomplicated
CPT/HCPCS: 99282

== ENCOUNTER 2019-12-20 15:07 | Emergency (ER) | payer OTHER ==
[2019-12-20 15:11] VITALS: RESP 16; TEMP 97.4
[2019-12-20] MEDS ORDERED: KETOROLAC 15 MG/ML 1 ML VIAL IM STA (15:28)
--- NOTE | 2019-12-20 15:39 | ED ---
General Adult HPI - General Chief complaint: Headache Stated complaint: head pain Time Seen by Provider: 12/20/19 15:13 Source: patient, RN notes reviewed Mode of arrival: ambulatory Limitations: no limitations - History of Present Illness Initial comments: 24-year-old female presents to the emergency room for a chief complaint of "bump on back of head." Patient reports she has had this bump for a very long time however it has to days it has become painful. States it sends a shooting pain across her head. States when she presses on the area makes this pain worse. States it has been causing her nausea as well. No fevers or chills. No neck pain or stiffness. No recent illnesses.Patient has no other complaints at this time including shortness of breath, chest pain, abdominal pain, or vomiting, or visual changes. - Related Data Home Medications Medication Instructions Recorded Confirmed Acetaminophen Tab [Tylenol] 650 mg PO Q4H PRN 12/20/19 12/20/19 Ibuprofen [Motrin Ib] 400 mg PO Q8H PRN 12/20/19 12/20/19 Allergies Allergy/AdvReac Type Severity Reaction Status Date / Time No Known Allergies Allergy Verified 12/20/19 17:51 Review of Systems ROS Statement: Those systems with pertinent positive or pertinent negative responses have been documented in the HPI. ROS Other: All systems not noted in ROS Statement are negative. Past Medical History Past Medical History: No Reported History Additional Past Medical History / Comment(s): elevated liver enzymes History of Any Multi-Drug Resistant Organisms: None Reported Past Surgical History: No Surgical Hx Reported Past Anesthesia/Blood Transfusion Reactions: No Reported Reaction Past Psychological History: ADD/ADHD, Anxiety, Bipolar, Depression Smoking Status: Current every day smoker Past Alcohol Use History: Occasional Past Drug Use History: None Reported - Past Family History Mother Family Medical History: Cancer Additional Family Medical History / Comment(s): cervical General Exam Limitations: no limitations General appearance: alert, in no apparent distress Head exam: Present: other (Patient has a small cyst noted on the right posterior parietal scalp.) Eye exam: Present: normal appearance, PERRL, EOMI. Absent: scleral icterus, conjunctival injection, periorbital swelling ENT exam: Present: normal exam, mucous membranes moist Neck exam: Present: normal inspection, full ROM. Absent: tenderness, meningismus, lymphadenopathy Respiratory exam: Present: normal lung sounds bilaterally. Absent: respiratory distress, wheezes, rales, rhonchi, stridor Cardiovascular Exam: Present: regular rate, normal rhythm, normal heart sounds. Absent: systolic murmur, diastolic murmur, rubs, gallop, clicks Neurological exam: Present: alert, oriented X3, CN II-XII intact, normal gait, other (GCS 15) Course Vital Signs 12/20/19 15:08 Temperature 97.4 F L Pulse Rate 79 Respiratory 16 Rate Blood Pressure 113/76 O2 Sat by Pulse 100 Oximetry Medical Decision Making - Medical Decision Making Vitals are stable. No focal neurologic deficits. HCG was obtained and patient is which she was unaware of. Last period was 2 weeks ago. Patient was given a migraine cocktail of fluids, Tylenol, Benadryl, and Reglan and had significant improvement in symptoms. At this time discussed with patient and shared decision making was used to not do a CAT scan. She will follow up derm for a cyst. She will follow up with [facility] with whom she has already established. She has prenatals at home that she will take.. She will return here to the emergency room for any worsening symptoms. I discussed this case with attending Dr. Mccabe who agrees with this assessment and treatment plan. - Lab Data Lab Results 12/20/19 Range/Units 15:43 Urine HCG, Qual Detected (Not Detectd) Disposition Clinical Impression: , Scalp lesion Disposition: HOME SELF-CARE Condition: Good Instructions (If sedation given, give patient instructions): Acute Headache (ED), (ED) Additional Instructions: Please follow up with CARDIAC REHAB NURSE. Take prenatals. Follow-up with your doctor or dermatology. If you have worsening symptoms return to the emergency room. Is patient prescribed a controlled substance at d/c from ED?: No Referrals: Pita Lowe MD [Primary Care Provider] - 1-2 days Pratik Garrison MD [STAFF PHYSICIAN] - 1-2 days Joshua Whitten MD [STAFF PHYSICIAN] - 1-2 days Time of Disposition: 17:55
[2019-12-20] MEDS ORDERED: ACETAMINOPHEN TAB 500 MG TAB PO STA (16:31)
[2019-12-20] MEDS ORDERED: diphenhydrAMINE 50 MG CAP PO STA (16:31)
[2019-12-20] MEDS ORDERED: SODIUM CHLORIDE 0.9% 1,000 ML IV STA (16:38)
[2019-12-20] MEDS ORDERED: METOCLOPRAMIDE 5 MG/ML 2 ML VIAL IVP STA (16:38)
[2019-12-20] MEDS ORDERED: diphenhydrAMINE 50 MG/ML 1 ML VIAL IVP STA (16:38)
[2019-12-20 18:30] VITALS: BP 132/73; PULSE 86
== END 2019-12-20 18:29 | disposition home or self-care (01) ==
LOC: EC 15:07
DX: L98.9 Disorder of the skin and subcutaneous tissue, unspecified (principal); Z33.1 Pregnant state, incidental; F17.200 Nicotine dependence, unspecified, uncomplicated
CPT/HCPCS: 81025; 99284; 96374; 96375; 96361 ×2; J1200; J2765

== ENCOUNTER 2020-01-27 14:54 | Emergency (ER) | payer OTHER ==
[2020-01-27 15:01] VITALS: BP 123/76; PULSE 96; RESP 18; TEMP 98
[2020-01-27] MEDS ORDERED: ACETAMINOPHEN TAB 325 MG TAB PO STA (15:40)
--- NOTE | 2020-01-27 15:49 | ED ---
Female Urogenital HPI - General Chief complaint: OB/Uterine Contractions Stated complaint: Cramping- preg 20 wks (maybe) Time Seen by Provider: 01/27/20 15:27 Source: patient Mode of arrival: ambulatory Limitations: no limitations - History of Present Illness Initial comments: Patient is a 24-year-old female, currently approximately 20 weeks , p resenting to the emergency Department with complaints of lower abdominal pain for the past 2 days. Patient states 2 days ago, her 8-month-old son actually kicked her in the stomach while she was changing the patient. Patient states she's been having some mild to moderate lower abdominal discomfort since then. She states 2 days ago she did have some very mild vaginal spotting but she has not had any since. She states she has yet to see an OB for this , stating she is having a hard time finding somebody to accept her insurance. She is . Her last delivery was with Dr. Early. She denies any chest pain, shortness of breath, fever, chills. She states she has had lower abdomen discomfort ever since her last . She states she has been able to feel the baby move around. She denies any history of abdominal surgeries. She denies any urinary complaints. She has no further complaints at this time. Upon arrival to the ER, her vital signs are stable. - Related Data Home Medications Medication Instructions Recorded Confirmed Acetaminophen Tab [Tylenol] 650 mg PO Q4H PRN 12/20/19 12/20/19 Ibuprofen [Motrin Ib] 400 mg PO Q8H PRN 12/20/19 12/20/19 Allergies Allergy/AdvReac Type Severity Reaction Status Date / Time No Known Allergies Allergy Verified 01/27/20 14:58 Review of Systems ROS Statement: Those systems with pertinent positive or pertinent negative responses have been documented in the HPI. ROS Other: All systems not noted in ROS Statement are negative. Past Medical History Past Medical History: No Reported History Additional Past Medical History / Comment(s): elevated liver enzymes History of Any Multi-Drug Resistant Organisms: None Reported Past Surgical History: No Surgical Hx Reported Past Anesthesia/Blood Transfusion Reactions: No Reported Reaction Past Psychological History: ADD/ADHD, Anxiety, Bipolar, Depression Smoking Status: Current every day smoker Past Alcohol Use History: Occasional Past Drug Use History: None Reported - Past Family History Mother Family Medical History: Cancer Additional Family Medical History / Comment(s): cervical General Exam - General Exam Comments Initial Comments: GENERAL: Patient is well-developed and well-nourished. Patient is nontoxic and in no acute distress. HEAD: Atraumatic, normocephalic. EYES: Pupils equal round and reactive to light, extraocular movements intact, sclera anicteric, conjunctiva are normal. Eyelids were unremarkable. ENT: TMs normal, nares patent, oropharynx clear without exudates. Moist mucous membranes. NECK: Normal range of motion, supple without lymphadenopathy or JVD. LUNGS: Unlabored respirations. Breath sounds clear to auscultation bilaterally and equal. No wheezes rales or rhonchi. HEART: Regular rate and rhythm without murmurs, rubs or gallops. ABDOMEN: Very mild lower abdominal discomfort with palpation, right side greater than left. Approximately 20 weeks . Soft, normoactive bowel sounds. No guarding, no rebound. No masses appreciated. : Deferred MUSCULOSKELETAL: Normal extremities with adequate strength and normal range of motion, no pitting or edema. No clubbing or cyanosis. NEUROLOGICAL: Patient is alert and oriented x 3. Motor and sensory are also intact. Cranial nerves II through XII grossly intact. Symmetrical smile. Normal speech, normal gait. PSYCH: Normal mood, normal affect. SKIN: Warm, Dry, normal turgor, no rashes or lesions noted. Limitations: no limitations Course Vital Signs 01/27/20 14:58 Temperature 98 F Pulse Rate 96 Respiratory 18 Rate Blood Pressure 123/76 O2 Sat by Pulse 99 Oximetry Medical Decision Making - Medical Decision Making Patient is a 24-year-old female here approximately 20 weeks presenting for lower abdominal pain. She states the OB floor sent her for an ultrasound since she does not currently have an WAX BLENDER. She is G5 T3. Dr. Early delivered her last child. Her vital signs are stable, she is having no vaginal bleeding. No other acute findings. ultrasound today revealed a single live IUP measuring approximately 23 weeks 4 days, obtaining process is seen, heart rate 139. Discussed these findings with the patient. I did recommend going back up to the OB floor for further evaluation. Patient is agreeable with this plan of care. She is stable for discharge. I will give her referral to an WAX BLENDER. Return parameters were discussed with the patient she verbalized understanding. Case discussed with Dr. Mccabe. Disposition Clinical Impression: , Abdominal pain during Disposition: HOME SELF-CARE Condition: Stable Instructions (If sedation given, give patient instructions): Abdominal Pain in (ED) Additional Instructions: Please return to the Emergency Department if symptoms worsen or any other concerns. Follow-up with your WAX BLENDER as discussed. Is patient prescribed a controlled substance at d/c from ED?: No Referrals: Pita Lowe MD [Primary Care Provider] - 1-2 days Dennis Blackburn MD [STAFF PHYSICIAN] - 1-2 days
--- NOTE | 2020-01-27 16:43 | US ---
EXAMINATION TYPE: US OB >= 14 wk fetus DATE OF EXAM: 01/27/2020 COMPARISON: None CLINICAL HISTORY: lower abdominal pain, 20wks preg No previous ultrasound. Unknown dates. TECHNIQUE: Transabdominal (TA) GESTATIONAL AGE / DATING Physician Established: Not yet established Dates by LMP: LMP unknown Dates by First Scan: No previous this is first scan Dates by Current Scan: (23 weeks/4 days) EDC: 05/21/2020 Beta HCG (if available): Not available at this time SURVEY IUP: Single PLACENTA: Anterior PREVIA: No Previa YG: 13.3 cm Normal CERVICAL LENGTH (transabdominal: norm > 3.0cm): 3.8 cm BIOMETRY PRESENTATION: Vertex BPD: 5.8 cm 23 weeks / 5 days HC: 21.8 cm 23 weeks / 6 days AC: 20.2 cm 24 weeks / 6 days FL: 4.2 cm 23 weeks / 3 days ESTIMATED WEIGHT IN GRAMS: 667.3 grams ESTIMATED WEIGHT IN LBS/OZ: 1 lbs. 8 oz. HC/AC: 1.1 Normal FL/AC: 20.6 Normal HEART RATE: 139 bpm RHYTHM: Normal Single live IUP measuring 23 weeks 4 days. IMPRESSION: No complicating process seen.
== END 2020-01-27 18:07 | disposition home or self-care (01) ==
LOC: EC 14:54
DX: O99.891 Other specified diseases and conditions complicating pregnancy (principal); R10.30 Lower abdominal pain, unspecified; O99.332 Smoking (tobacco) complicating pregnancy, second trimester; F17.200 Nicotine dependence, unspecified, uncomplicated; Z3A.23 23 weeks gestation of pregnancy
CPT/HCPCS: 76805; 99284

== ENCOUNTER 2020-03-27 17:07 | Outpatient (CLI) | payer OTHER ==
[2020-03-27 17:29] LABS: Appearance,Urine Clear (Clear); Bacteria,Urine Rare /hpf; Bilirubin,Urine Negative (Negative); Blood,Urine Negative (Negative); Color,Urine Light Yellow; Glucose,Urine (UA) Negative (Negative); Ketones,Urine Negative (Negative); Leukocyte Esterase,Urine Moderate (Negative); Mucus,Urine Rare /hpf; Nitrite,Urine Negative (Negative); PH, Urine 6.5 (5.0-8.0); Protein,Urine Negative (Negative); RBC,Urine 1 /hpf (0-5); Specific Gravity,Urine 1.012 (1.001-1.035); Squamous Epithelial Cell,Urine 6 /hpf (0-4); Urobilinogen,Urine <2.0 mg/dL (<2.0); WBC,Urine 3 /hpf (0-5)
[2020-03-27 18:47] LABS: Basophils % (A) 0 %; Eosinophils # (A) 0.1 k/uL (0-0.7); Eosinophils % (A) 1 %; HCT 33.1 % (34.0-46.0); HGB 11.1 gm/dL (11.4-16.0); Lymphocytes # (A) 2.5 k/uL (1.0-4.8); Lymphocytes % (A) 26 %; MCH 28.7 pg (25.0-35.0); MCHC 33.5 g/dL (31.0-37.0); MCV 85.8 fL (80.0-100.0); Mean Platelet Volume 6.9; Monocytes # (A) 0.4 k/uL (0-1.0); Monocytes % (A) 4 %; Neutrophils # (A) 6.5 k/uL (1.3-7.7); Neutrophils % (A) 67 %; Platelet Count 457 k/uL (150-450); RBC 3.86 m/uL (3.80-5.40); WBC 9.6 k/uL (3.8-10.6)
[2020-03-27 19:12] VITALS: BP 113/80; PULSE 88; RESP 16; TEMP 97.5
--- NOTE | 2020-03-27 22:53 | P.MSEPDOC ---
Presenting Problems - Arrival Data Date of Arrival on Unit: 03/27/20 Time of Arrival on Unit: 17:00 Mode of Transport: Ambulatory - Complaint OB-Reason for Admission/Chief Complaint: Pain Comment: lower pelvic pain, no care Medical History - Information : 4 Para: 3 Number of Living Children: 3 - Gestational Age Gestational Age by LAWRENCE (wks/days): 32 Weeks and 1 Days - History Complications: No Care Review of Systems - Review of Systems Constitutional: No problems Breast: No problems ENT: No problems Cardiovascular: No problems Respiratory: No problems Gastrointestinal: No problems Genitourinary: No problems Musculoskeletal: No problems Neurological: No problems Skin: No problems Vital Signs - Temperature Temperature: 97.5 F Temperature Source: Temporal Artery Scan - Pulse Right Sitting Brachial Pulse Rate: 88 Pulse Assessment Method: Automatic Cuff - Respirations Respiratory Rate: 16 Oxygen Delivery Method: Room Air O2 Sat by Pulse Oximetry: 98 - Blood Pressure Right Arm Sitting Blood Pressure: 113/80 Blood Pressure Mean: 91 Blood Pressure Source: Automatic Cuff Medical Screen Scoring (Pre) - Cervical Exam Dilation: Exam Deferred Effacement: Exam Deferred Membranes: Intact - Uterine Contractions Frequency: N/A Duration: N/A Intensity: N/A - Maternal Vital Signs Maternal Temperature: N/A Maternal Blood Pressure: N/A Signs of Preeclampsia: N/A Maternal Respirations: N/A - Maternal Trauma Maternal Trauma: N/A - Assessment - Baby A Baseline FHR: 145 Heart Rate - NICHD Category: Category I (Normal) = 0 NST: Reactive Position: N/A Station: N/A - Total Score - Baby A Total Score - Baby A: 0 - Total Score - Baby B Total Score - Baby B: 0 - Total Score - Baby C Total Score - Baby C: 0 - Level of Risk - Baby A Level of Risk - Baby A: Low (0-5) - Level of Risk - Baby B Level of Risk - Baby B: Low (0-5) - Level of Risk - Baby C Level of Risk - Baby C: Low (0-5) Physician Notification (Pre) - Physician Notified Physician Notified Date: 03/27/20 Physician Notified Time: 18:00 New Order Received: Yes - Notification Comment Comment: discharge Disposition - Disposition OB Disposition: Discharge to home Discharge Date: 03/27/20 Discharge Time: 18:40 I agree with the RN Medical Screening Exam: Yes Case reviewed; plan agreed upon as documented in EMR&OBIX.: Yes Comments: Pt has had no care. I ordered the labs that would be needed if she delivers here. Her complaint tonight was lower pelvic pressure. UA was not concerning for cytisits. She was not conor and cervix closed and thick per RN. heart tones category 1. reactive NST Diagnosis: PELVIC AND PERINEAL PAIN
[2020-03-28 00:29] LABS: HIV 2 AB Non-Reactive (Non-Reactive); HIV AB P24 Non-Reactive (Non-Reactive); HIV P24 AG Non-Reactive (Non-Reactive)
[2020-03-28 04:26] LABS: Hepatitis B Surface Antigen Non-Reactive (Non-Reactive)
== END 2020-03-27 18:40 | disposition home or self-care (01) ==
LOC: FBPOP 17:07
PROVIDERS: ATTEND Obstetrics & Gynecology
DX: O99.891 Other specified diseases and conditions complicating pregnancy (principal); R10.2 Pelvic and perineal pain; Z3A.32 32 weeks gestation of pregnancy
CPT/HCPCS: 59025; 86900; 86901; 86762; 85025; 86850; 87340; 81001; 86780; 87390; G0463; 99213

== ENCOUNTER 2020-04-30 11:07 | Outpatient (CLI) | payer OTHER ==
[2020-04-30 12:46] VITALS: BP 131/82; PULSE 100; RESP 16; TEMP 98
--- NOTE | 2020-05-25 08:40 | P.MSEPDOC ---
Presenting Problems - Arrival Data Date of Arrival on Unit: 04/30/20 Time of Arrival on Unit: 11:07 Mode of Transport: Ambulatory - Complaint OB-Reason for Admission/Chief Complaint: Possible Onset of Labor Comment: lower pelvic pain x 1 week Medical History - Information : 5 Para: 2 Term: 2 : 0 Abortions: Spontaneous or Elective: 2 Number of Living Children: 2 - Gestational Age Gestational Age by LAWRENCE (wks/days): 37 Weeks and 0 Days - History Complications: No Care, Smoker Review of Systems - Review of Systems Constitutional: No problems Breast: No problems ENT: No problems Cardiovascular: No problems Respiratory: No problems Gastrointestinal: No problems Genitourinary: No problems Musculoskeletal: No problems Neurological: No problems Skin: No problems Vital Signs - Temperature Temperature: 98 F Temperature Source: Temporal Artery Scan - Pulse Right Brachial Pulse Rate: 100 Pulse Assessment Method: Automatic Cuff - Respirations Respiratory Rate: 16 Oxygen Delivery Method: Room Air O2 Sat by Pulse Oximetry: 98 - Blood Pressure Right Arm Sitting Blood Pressure: 131/82 Blood Pressure Mean: 98 Blood Pressure Source: Automatic Cuff Medical Screen Scoring (Pre) - Cervical Exam Dilation: 1-3 cm = 1 Membranes: Intact - Uterine Contractions Frequency: > or = 36 weeks =2 Duration: > 40 seconds = 2 Intensity: N/A - Maternal Vital Signs Maternal Temperature: N/A Maternal Blood Pressure: N/A Signs of Preeclampsia: N/A Maternal Respirations: N/A - Maternal Trauma Maternal Trauma: N/A - Assessment - Baby A Baseline FHR: 135 Heart Rate - NICHD Category: Category I (Normal) = 0 NST: Reactive Position: N/A Station: N/A - Total Score - Baby A Total Score - Baby A: 5 - Total Score - Baby B Total Score - Baby B: 5 - Total Score - Baby C Total Score - Baby C: 5 - Level of Risk - Baby A Level of Risk - Baby A: Low (0-5) - Level of Risk - Baby B Level of Risk - Baby B: Low (0-5) - Level of Risk - Baby C Level of Risk - Baby C: Low (0-5) Physician Notification (Pre) - Physician Notified Physician Notified Date: 04/30/20 Physician Notified Time: 11:48 New Order Received: Yes (may discharge if no cervical change 1 hour) Disposition - Disposition OB Disposition: Triage, Discharge to home, Written follow up instructions reviewed Discharge Date: 04/30/20 Discharge Time: 12:33 I agree with the RN Medical Screening Exam: Yes Case reviewed; plan agreed upon as documented in EMR&OBIX.: Yes Diagnosis: FALSE LABOR AT OR AFTER 37 COMPLETED WEEKS OF GESTATION
== END 2020-04-30 12:33 | disposition home or self-care (01) ==
LOC: FBPOP 11:07
PROVIDERS: ATTEND Obstetrics & Gynecology
DX: O47.1 False labor at or after 37 completed weeks of gestation (principal); Z3A.37 37 weeks gestation of pregnancy
CPT/HCPCS: 59025; G0463; 99213

== ENCOUNTER 2020-05-06 17:48 | Inpatient (IN) | payer OTHER ==
[2020-05-06] MEDS ORDERED: AMPICILLIN 2,000 MG in SODIUM CHLORIDE 0.9% 100 ML IVPB STA (18:02)
[2020-05-06] MEDS ORDERED: CARBOPROST TROMETHAMINE 250 MCG/ML 1 ML AMP IM PRN (18:02)
[2020-05-06] MEDS ORDERED: METHYLERGONOVINE 0.2 MG/ML 1 ML AMP IM PRN (18:02)
[2020-05-06] MEDS ORDERED: TERBUTALINE 1 MG/ML VIAL SQ PRN (18:02)
[2020-05-06] MEDS ORDERED: LIDOCAINE 0.5% (PF) 5 MG/ML (50 ML SDV) SQ PRN (18:02)
[2020-05-06] MEDS ORDERED: OXYTOCIN 10 UNIT/ML 1 ML VIAL IM PRN (18:02)
[2020-05-06 18:24] LABS: Basophils % (A) 0 %; Eosinophils # (A) 0.1 k/uL (0-0.7); Eosinophils % (A) 1 %; HCT 33.9 % (34.0-46.0); HGB 11.4 gm/dL (11.4-16.0); Lymphocytes # (A) 2.1 k/uL (1.0-4.8); Lymphocytes % (A) 27 %; MCH 28.1 pg (25.0-35.0); MCHC 33.8 g/dL (31.0-37.0); MCV 83.3 fL (80.0-100.0); Mean Platelet Volume 7.4; Monocytes # (A) 0.3 k/uL (0-1.0); Monocytes % (A) 4 %; Neutrophils % (A) 66 %; Platelet Count 399 k/uL (150-450); RBC 4.07 m/uL (3.80-5.40); RDW 15.3 % (11.5-15.5); WBC 7.5 k/uL (3.8-10.6)
[2020-05-06] MEDS: LACTATED RINGERS 1,000 ML IV SCH ×2 (18:26→21:23)
[2020-05-06] MEDS ORDERED: fentaNYL (PF) 50 MCG/ML 5 ML AMP ONE (18:34)
[2020-05-06] MEDS ORDERED: BUPIVACAINE (PF) 0.25% 30 ML VIAL ONE (18:34)
[2020-05-06] MEDS ORDERED: SODIUM CHLORIDE 0.9% 100 ML BAG ONE (18:34)
[2020-05-06] MEDS ORDERED: OXYTOCIN 30 UNITS/500 ML NS 30 UNIT in SALINE 1 500ML.BAG IV SCH (19:30)
[2020-05-06 19:38] LABS: Amphetamine Screen,Urine Detected (NotDetected); Barbiturate Screen,Urine Not Detected (NotDetected); Benzodiazepines Screen,Urine Not Detected (NotDetected); Cocaine Screen,Urine Not Detected (NotDetected); Methadone Screen, Urine Not Detected (NotDetected); Opiate Screen,Urine Not Detected (NotDetected); Oxycodone Screen, Urine Not Detected (NotDetected); Phencyclidine Screen,Urine Not Detected (NotDetected); Tricyclic Antidepressant,Urine Not Detected (NotDetected); Urn Cannabinoid Scrn Detected (NotDetected)
[2020-05-06] MEDS ORDERED: AMPICILLIN 1,000 MG in SODIUM CHLORIDE 0.9% 50 ML IVPB SCH (22:00)
--- NOTE | 2020-05-06 22:58 | P.PN ---
Progress Note - Text 07:54 PM received a call from the nursing staff regarding this mother, Elsa Chambers. Report mother did not receive any care during this and urine drug screen upon arrival was positive for THC and amphetamine. In addition, family has refused routine care. The nurse inquired about the anticipated care for this . I stated when there is a concern for substance use in mother during , we monitored the baby for withdrawal symptoms for a minimum of 5 days. Typically, the baby spends the first few hours of life in the mother's suite to promote bonding and then transferred into the nursery for further management. Nurses report they will relay the plan to the family. This travel writer asked to be notified if the family has any questions or concerns 08:10 PM received a call from the nursing staff that family, in particular father of the baby, refused to allow the baby to leave the room. This travel writer report she'll come into the hospital shortly to discuss the management and the concerns of withdrawals with the family in person This travel writer reviewed the mom's chart. Urine drug screen collected 05/06/2020 at 18:20 Amphetamines detected, marijuana (THC) detected. In addition, mother's urine drug screen was positive for amphetamines and cannabinoid on 11/10/2016. Mom's most recent delivery was 04/21/2019. Review of that baby's chart revealed family refused Vitamin K injection, Hepatitis B vaccination, metabolic screening, and hearing testing. Dr. Kimberli Lowe was the forester aide for that baby and is listed as the forester aide for this baby. The nurse notified Dr. Lowe regarding this mother and her drug screen and that typically, babies are brought into the nursery for LAMONT ( abstinence syndrome) symptoms for a minimum of 5 days. This travel writer also spoke to Dr. Lowe and she is in agreement that the baby will be admitted under the service of pediatric hosp italist for concerns of LAMONT symptoms. Also obtained MAPS-last prescribed controlled medication for mother was hydrocodone-acetaminophen on 08/21/2019 09:30 PM this travel writer along with Emeka Graham RN went into the suite to speak with the family. The father of baby, mother's sister and mother were present. I asked the family about their understanding of our concerns and the need for observation of the baby. The father stated "if the baby is fine, there is no need to take the baby away". This travel writer explained that we have evidence that mother has used substances that can negatively effect the baby. The baby after delivery may suffer from withdrawal symptoms. Every baby is different and sometimes it takes up to 5 days for the withdrawal symptoms to appear hence they are monitored for 5 days. Every baby is again different but the symptoms we are most concerned about is extreme irritability and difficulty eating. With irritability, we have seem babies cry continuously, despite attempts to console, and the irritability can also lead to difficulties feeding, whether it is breast-feeding or bottle feeding. Sometimes babies may need medication to help with withdrawal symptoms, so they rest and eat, which allows them to grow properly. Dad again reiterated that if the baby is fine, the baby should remain in the room. Unfortunately, we are unable to have a nursing staff sit in the mother's suite and monitor the baby constantly, but in the nursery, we do have constant nurses available. Dad reports he will notify us if the baby is irritable or has difficulties. Again explained unfortunately a trained nursing staff has to evaluates the patient, not the parents. This travel writer reiterated that the baby is allowed to stay with the mom for first few hours after delivery. In addition, explained that the nursery is right across the hallway and families are allowed in the nursery 21/09. This travel writer state that she is aware of their refusal of routine care and that no procedures, tests or medications will be given without their consent. Even offered a tour of the nursery, which dad refused. Dad report he "fought tooth and nail" a year ago over a heel poke (for their 1 year old son). He reports he will fight again and does "not trust" anyone. I again reassured that the observation of the baby is for the health and benefit of the baby. He states he wants to see a "court order that the baby has to leave the room" and does not believe it is necessary. He'll also states "he plans to take the baby once the she (mom) is released". Family is aware that the recommendation is to transfer the baby to the nursery for LAMONT monitoring. At this time, family has refused This travel writer and nurse left mother's suite at 9:40 PM Plan - the baby will be admitted under the pediatric hospitalist service - We'll discuss with the family again after delivery the need for LAMONT monitoring and nursery admission - Social work consult
[2020-05-07] MEDS ORDERED: diphenhydrAMINE 25 MG CAP PO PRN (00:29)
[2020-05-07] MEDS ORDERED: ZOLPIDEM 5 MG TAB PO PRN (00:29)
[2020-05-07] MEDS ORDERED: diphenhydrAMINE 50 MG CAP PO PRN (00:29)
[2020-05-07] MEDS ORDERED: MEASLES-MUMPS-RUBELLA VACC/PF 12,500 UNIT/0.5 ML VIAL SQ ONE (00:29)
[2020-05-07] MEDS ORDERED: LANOLIN CREAM 5 GM TUBE TOPICAL PRN (00:29)
[2020-05-07] MEDS ORDERED: diphenhydrAMINE 50 MG/ML 1 ML VIAL IVP PRN ×2 (00:29)
[2020-05-07] MEDS ORDERED: BENZOCAINE/MENTHOL SPRAY 1 GM/SPRAY AEROSOL TOPICAL PRN (00:29)
[2020-05-07] MEDS ORDERED: HYDROCORTISONE 2.5% RECTAL CREAM 30 GM TUBE RECTAL PRN (00:29)
[2020-05-07] MEDS ORDERED: SIMETHICONE 80 MG CHEWABLE PO PRN (00:29)
--- NOTE | 2020-05-07 00:32 | P.HPOB ---
History of Present Illness H&P Date: 05/07/20 Chief Complaint: Uterine at term: Spontaneous rupture of membranes: No ca Elsa is a 24-year-old at 37 weeks gestation based on ultrasound through the emergency room with spontaneous rupture membranes. She is grossly ruptured. She is dilated to 3 cm and 60% effaced -2 station. After discussing antibiotic prophylaxis for group B strep she would like to have Pitocin augmentation of labor and an epidural for analgesia. She denies any problems or palpitations with the but relates that she did not seek care for this Precis due to covid19. A category 1 tracing is noted. Past medical history none past surgical history none ALLERGIES none social history is significant for tobacco abuse of proxy 5 serous per day and marijuana use family history she denies It is noted that her last baby had extra digits on both hands and feet On physical exam vital signs are stable and afebrile. Heart regular, lungs clear, extremities without pain. Abdomen is soft gravid uterus is noted. She is having irregular contractions despite spontaneous rupture membranes. Deep tendon reflexes are normal and there is no peripheral edema. Assessment intrauterine at term. Plan expect spontaneous vaginal delivery Past Medical History Past Medical History: No Reported History Additional Past Medical History / Comment(s): elevated liver enzymes History of Any Multi-Drug Resistant Organisms: None Reported Past Surgical History: No Surgical Hx Reported Past Anesthesia/Blood Transfusion Reactions: No Reported Reaction Past Psychological History: ADD/ADHD, Anxiety, Bipolar, Depression Smoking Status: Current every day smoker Past Alcohol Use History: Occasional Past Drug Use History: None Reported - Past Family History Mother Family Medical History: Cancer Additional Family Medical History / Comment(s): cervical Medications and Allergies Home Medications Medication Instructions Recorded Confirmed Type No Known Home Medications 04/30/20 05/06/20 History Allergies Allergy/AdvReac Type Severity Reaction Status Date / Time No Known Allergies Allergy Verified 04/30/20 12:00 Exam Osteopathic Statement: *. No significant issues noted on an osteopathic structural exam other than those noted in the History and Physical/Consult. Vital Signs Temp Pulse Resp BP 05/06/20 18:58 98.4 F 90 16 123/79 Intake and Output 05/06/20 05/06/20 05/07/20 14:59 22:59 06:59 Output Total 400 Balance -400 Output: Urine 400 Other: Weight 63.503 kg Results Result Diagrams: 05/06/20 18:07 Abnormal Lab Results - Last 24 Hours (Table) 05/06/20 05/06/20 Range/Units 18:07 18:20 Hct 33.9 L (34.0-46.0) % Ur Amphetamines Screen Detected H (NotDetected) U Marijuana (THC) Screen Detected H (NotDetected)
--- NOTE | 2020-05-07 00:51 | P.PROBDLV ---
Vaginal Delivery Note - . Vaginal Delivery Note: Patient progressed to complete and pushing with spontaneous vaginal delivery of a viable female over first repair laceration. Following deliver the head a nuchal cord 1 was noted from left occiput anterior position. Gentle downward and upward traction was then done to deliver the shoulders followed by the remainder the baby. Mouth nares were then bulb suctioned and baby was placed on mother's abdomen and the umbilical cord was allowed to pulsate for 30 seconds prior to clamping and cutting. Nursery personnel was present and assumed care. Placenta then wall being delivered did have a cord pop off. I was easily able to grasp the initial segment and remove it without difficulty. On inspection it appeared to be not intact with membranes still behind so I did do 1 more exam and a large flow was noted. I suspect this may represent a succenturiate lobe that may be high school admissions representative why there was a cord pop off. The placenta was also very advance with multiple calcifications and will be sent to pathology for evaluation. scores were 9 and 9 at one and 5 minutes [place] and the weight was 6 lbs. 14 oz. Both mother and baby are stable following delivery. First repair laceration was repaired with 3-0 Vicryl following 1% Xylocaine for analgesia.
[2020-05-07] MEDS: IBUPROFEN 600 MG TAB PO SCH ×5 (02:10→15:46)
[2020-05-07] MEDS: LACTATED RINGERS 1,000 ML IV SCH (03:49)
[2020-05-07] MEDS: ACETAMINOPHEN TAB 325 MG TAB PO PRN ×2 (06:10→18:08)
[2020-05-07] MEDS: SENNOSIDES-DOCUSATE SODIUM 1 EACH TAB PO SCH ×2 (08:03→21:15)
[2020-05-08] MEDS: IBUPROFEN 600 MG TAB PO SCH ×3 (00:24→07:45)
[2020-05-08 06:42] LABS: Basophils % (A) 0 %; Eosinophils # (A) 0.1 k/uL (0-0.7); Eosinophils % (A) 2 %; HCT 32.4 % (34.0-46.0); HGB 10.7 gm/dL (11.4-16.0); Lymphocytes # (A) 2.7 k/uL (1.0-4.8); Lymphocytes % (A) 33 %; MCH 27.4 pg (25.0-35.0); MCHC 32.9 g/dL (31.0-37.0); MCV 83.1 fL (80.0-100.0); Mean Platelet Volume 7.5; Monocytes # (A) 0.4 k/uL (0-1.0); Monocytes % (A) 4 %; Neutrophils # (A) 4.9 k/uL (1.3-7.7); Neutrophils % (A) 60 %; Platelet Count 386 k/uL (150-450); RDW 15.3 % (11.5-15.5); WBC 8.3 k/uL (3.8-10.6)
[2020-05-08] MEDS: SENNOSIDES-DOCUSATE SODIUM 1 EACH TAB PO SCH (07:46)
[2020-05-08 08:03] VITALS: BP 130/84; PULSE 68; RESP 18; TEMP 97.9
--- NOTE | 2020-05-08 15:48 | P.DS ---
Providers Date of admission: 05/06/20 17:48 Expected date of discharge: 05/08/20 Attending physician: Jose Maier Primary care physician: Stated None Hospital Course: Elsa left the hospital without evaluation. She was notified that I would be over to see her in approximately 30 minutes and she and her left. She was stable for discharge therefore she is being discharged from the hospital. Questions were answered for her and discharge instruction reviewed with her by the nursing staff otherwise her vital signs were stable but she was not evaluated by myself and she refused to wait. Patient Condition at Discharge: Good Plan - Discharge Summary New Discharge Prescriptions: No Action No Known Home Medications Discharge Medication List No Known Home Medications 04/30/20 [History] Follow up Appointment(s)/Referral(s): Jose Maier DO [Doctor of Osteopathic Medicine] - 6 Weeks Activity/Diet/Wound Care/Special Instructions: Heavy lifting, limit stairs and driving, and pelvic rest. If any high temperatures, heavy bleeding, or severe pain call my office Discharge Disposition: HOME SELF-CARE
== END 2020-05-08 12:00 | disposition home or self-care (01) | DRG 806 ==
LOC: 4FBP 17:48
PROVIDERS: ADMIT Obstetrics & Gynecology; ATTEND Obstetrics & Gynecology
PROC: 00HU33Z Insertion of Infusion Device into Spinal Canal, Percutaneous Approach (ICD-10-PCS; principal; 2020-05-07)
PROC: 10E0XZZ Delivery of Products of Conception, External Approach (ICD-10-PCS; principal; 2020-05-07)
PROC: 0HQ9XZZ Repair Perineum Skin, External Approach (ICD-10-PCS; principal; 2020-05-07)
PROC: 3E0R3NZ Introduction of Analgesics, Hypnotics, Sedatives into Spinal Canal, Percutaneous Approach (ICD-10-PCS; principal; 2020-05-07)
DX: O43.193 Other malformation of placenta, third trimester (principal); O99.324 Drug use complicating childbirth; Z37.0 Single live birth; Z3A.37 37 weeks gestation of pregnancy; O09.33 Supervision of pregnancy with insufficient antenatal care, third trimester; O99.334 Smoking (tobacco) complicating childbirth; O99.344 Other mental disorders complicating childbirth; O69.81X0 Labor and delivery complicated by cord around neck, without compression, not applicable or unspecified; F15.10 Other stimulant abuse, uncomplicated; F12.10 Cannabis abuse, uncomplicated; F90.9 Attention-deficit hyperactivity disorder, unspecified type; F41.9 Anxiety disorder, unspecified; F31.9 Bipolar disorder, unspecified; F17.210 Nicotine dependence, cigarettes, uncomplicated; Z80.49 Family history of malignant neoplasm of other genital organs
CPT/HCPCS: 80306; 85025; 86850; 86900; 86901

== ENCOUNTER 2022-10-31 12:10 | Emergency (ER) | payer OTHER ==
[2022-10-31 12:20] VITALS: RESP 18
[2022-10-31 12:24] VITALS: BP 129/87; PULSE 90; TEMP 99.4
[2022-10-31] MEDS ORDERED: IBUPROFEN 600 MG TAB PO STA (12:25)
--- NOTE | 2022-10-31 12:31 | ED ---
General Adult HPI - General Chief complaint: Extremity Injury, Lower Stated complaint: Left toe injury Time Seen by Provider: 10/31/22 12:21 Source: patient, RN notes reviewed, old records reviewed Mode of arrival: wheelchair - History of Present Illness Initial comments: Patient Is a 26-year-old female presents emergency department for evaluation of left foot injury. Stubbed her foot on a coffee table yesterday evening. Presents today as she is having worsening pain over the third through fifth toe with radiation into the mid foot. Decreased range of motion. No other i njuries. Is not on blood thinners. Did not hit her head. No loss consciousness. No falls. Presents with concern for the toe pain. Decreased range of motion secondary to pain but neurovascular intact. - Related Data Home Medications Medication Instructions Recorded Confirmed No Known Home Medications 04/30/20 05/06/20 Allergies Allergy/AdvReac Type Severity Reaction Status Date / Time No Known Allergies Allergy Verified 10/31/22 12:20 Review of Systems ROS Statement: Those systems with pertinent positive or pertinent negative responses have been documented in the HPI. Review of Systems: CONST: Denies fever EYES: Denies blurry vision ENT: Denies nasal congestion C/V: Denies Chest pain RESP: Denies shortness of breath GI: Denies abdominal pain : Denies dysuria SKIN: Denies rash. MSK: Endorses left foot pain. NEURO: Denies headache ROS Other: All systems not noted in ROS Statement are negative. Past Medical History Past Medical History: No Reported History Additional Past Medical History / Comment(s): elevated liver enzymes History of Any Multi-Drug Resistant Organisms: None Reported Past Surgical History: No Surgical Hx Reported Past Anesthesia/Blood Transfusion Reactions: No Reported Reaction Past Psychological History: ADD/ADHD, Anxiety, Bipolar, Depression Smoking Status: Current every day smoker Past Alcohol Use History: Occasional Past Drug Use History: None Reported - Past Family History Mother Family Medical History: Cancer Additional Family Medical History / Comment(s): cervical General Exam - General Exam Comments Initial Comments: General: Appears in mild distress secondary to pain. HEAD: Normal with no signs of head trauma. EYES: EOMI. ENT: Hearing grossly intact. RESPIRATORY: No respiratory distress. C/V: Regular rate and rhythm. ABD: Abdomen is nondistended. EXT: No obvious deformity. Decreased range of motion of the third through fifth toes on the left foot. Normal range of motion of the left ankle. Neurovascular intact throughout the left foot. SKIN: Bruising over the third through fifth toes, primarily the third digit. No lacerations or abrasions. NEURO: Alert and oriented. Course Vital Signs 10/31/22 10/31/22 12:18 12:24 Temperature 97.8 F 99.4 F Pulse Rate 85 90 Respiratory 18 18 Rate Blood Pressure 133/82 129/87 O2 Sat by Pulse 98 98 Oximetry Medical Decision Making - Medical Decision Making Was pt. sent in by a medical professional or institution (, PA, ART PREPARATOR, urgent care, hospital, or fdc...) When possible be specific @ -No Did you speak to anyone other than the patient for history (EMS, parent, family, police, friend...)? What history was obtained from this source @ -No Did you review nursing and triage notes (agree or disagree)? Why? @ -I reviewed and agree with nursing and triage notes Were old charts reviewed (outside hosp., previous admission, EMS record, old EKG, old radiological studies, urgent care reports/EKG's, fdc records)? Report findings @ -No old charts were reviewed Differential Diagnosis (chest pain, altered mental status, abdominal pain women, abdominal pain men, vaginal bleeding, weakness, fever, dyspnea, syncope, headache, dizziness, GI bleed, back pain, seizure, CVA, palpatations, mental health, musculoskeletal)? @ -Differential Musculoskeletal Muscular strain, contusion, ligament sprain, fracture, arthritis, septic arthritis, bursitis, cellulitis, muscle spasm, nerve compression, DVT, arterial occlusion, herpes zoster, electrolyte abnormality, tumor.... This is not meant to be in all inclusive list EKG interpreted by me (3pts min.). @ -None done X-rays interpreted by me (1pt min.). @ -Left foot x-ray x-ray revealed no evidence of acute fracture or injury of the patient's left foot. CT interpreted by me (1pt min.). @ -None done U/S interpreted by me (1pt. min.). @ -None done What testing was considered but not performed or refused? (CT, X-rays, U/S, labs)? Why? @ -None What meds were considered but not given or refused? Why? @ -None Did you discuss the management of the patient with other professionals (professionals i.e. , PA, ART PREPARATOR, lab, RT, psych nurse, social media developer, ceramic painter, teacher, parking enforcement officer, case management director)? Give summary @ -No Was smoking cessation discussed for >3mins.? @ -No Was critical care preformed (if so, how long)? @ -No Were there social determinants of health that impacted care today? How? (Homelessness, low income, unemployed, alcoholism, drug addiction, transportation, low edu. Level, literacy, decrease access to med. care, snf, rehab)? @ -No Was there de-escalation of care discussed even if they declined (Discuss DNR or withdrawal of care, Hospice)? DNR status @ -No What co-morbidities impacted this encounter? (DM, HTN, Smoking, COPD, CAD, Cancer, CVA, ARF, Chemo, Hep., AIDS, mental health diagnosis, sleep apnea, morbid obesity)? @ -None Was patient admitted / discharged? Hospital course, mention meds given and route, prescriptions, significant lab abnormalities, going to OR and other pertinent info. @ -Based on the patient's presentation and physical exam, presents with injuries to the left foot and toes. We will obtain an x-ray. She'll be given Motrin for analgesia. Injury occurred last night. No other injuries. Patient was in agreement this plan. Vital signs within acceptable limits. Patient's imaging negative for any fracture. I updated the patient. She expressed understanding. Discussed rest, ice, elevation, [id number] analgesic medications for pain control. She will be given a hard sole shoe on discharge. Strict return precautions discussed. She was in agreement with this plan. I instructed the patient to follow up with their PCP in the next 1-3 days. I explained that the patient should return to the emergency department if they experience any worsening symptoms. Strict return precautions were discussed with the patient. The patient expressed understanding of these instructions. I answered all questions that the patient had. The patient was discharged home in good condition with their prescriptions and follow up information. Undiagnosed new problem with uncertain prognosis? @ -No Drug Therapy requiring intensive monitoring for toxicity (Heparin, Nitro, Insulin, Cardizem)? @ -No Were any procedures done? @ -No Diagnosis/symptom? @ -Left toe sprain Acute, or Chronic, or Acute on Chronic? @ -Acute Uncomplicated (without systemic symptoms) or Complicated (systemic symptoms)? @ -Uncomplicated Side effects of treatment? @ -none Exacerbation, Progression, or Severe Exacerbation] @ -no Poses a threat to life or bodily function? @ -no Disposition Clinical Impression: Toe sprain Disposition: HOME SELF-CARE Condition: Good Instructions (If sedation given, give patient instructions): Foot Sprain (ED) Is patient prescribed a controlled substance at d/c from ED?: No Referrals: Pita Lowe MD [Primary Care Provider] - 1-2 days Time of Disposition: 13:04
--- NOTE | 2022-10-31 12:50 | XR ---
EXAMINATION TYPE: XR foot complete LT DATE OF EXAM: 10/31/2022 12:43 PM INDICATION: Patient age:Female; 26 years old; Reason for study: toe/foot pain after injury; [facility]. COMPARISON: Left foot radiograph 11/21/2011 TECHNIQUE: The left foot was examined in the AP, oblique, and lateral projections. FINDINGS: No evidence of any acute osseous pathology. No evidence of soft tissue swelling. Joints are preserve d. IMPRESSION: No evidence of acute fracture.
== END 2022-10-31 13:22 | disposition home or self-care (01) ==
LOC: EC 12:10
DX: S93.509A Unspecified sprain of unspecified toe(s), initial encounter (principal); F17.200 Nicotine dependence, unspecified, uncomplicated; W22.03XA Walked into furniture, initial encounter
CPT/HCPCS: 99283